=== PATIENT | female | born 1985 | race Caucasian/White ===

== ENCOUNTER 2017-03-02 11:33 | Emergency (ER) | payer OTHER ==
[2017-03-02 11:58] VITALS: TEMP 97.7
--- NOTE | 2017-03-02 13:35 | ED ---
Head Injury HPI - General Chief complaint: Head Injury Stated complaint: facial bruising Time Seen by Provider: 03/02/17 12:46 Source: family, RN notes reviewed Mode of arrival: ambulatory Limitations: language barrier - History of Present Illness Initial comments: This a 31-year-old female with caregiver presents emergency Department chief complaint facial bruising. Patient is nonverbal mentally challenged patient that showed up to day program today with bruises all over her face. Patient commonly hits her face causes bruising but the symptoms worsen usual. Patient' s had no abnormal behavior from her baseline. No vomiting episodes. Patient's had no unilateral weakness. Patient did not have any witnessed trauma - Related Data Home Medications Medication Instructions Recorded Confirmed Multivitamin with Iron [Daily 1 tab PO DAILY 12/11/14 03/02/17 Multivitamin with Iron] Omeprazole [PriLOSEC] 20 mg PO AC-BRKFST 12/23/14 03/02/17 Diazepam [Valium] 2.5 mg PO HS 03/02/17 03/02/17 Lactulose 10 gm PO HS 03/02/17 03/02/17 Melatonin Unknown Dose 1 tab PO HS 03/02/17 03/02/17 Allergies/Adverse reactions: Allergies Allergy/AdvReac Type Severity Reaction Status Date / Time No Known Allergies Allergy Verified 03/02/17 13:55 Review of Systems ROS Statement: Those systems with pertinent positive or pertinent negative responses have been documented in the HPI. ROS Other: All systems not noted in ROS Statement are negative. Past Medical History Past Medical History: GERD/Reflux, Memory Impairment, Musculoskeletal Disorder, Neurologic Disorder Additional Past Medical History / Comment(s): RETT SYNDROME. APRAXIA. NON VERBAL. SEVERE SCOLIOSIS. UNABLE TO PERFORM ADL'S History of Any Multi-Drug Resistant Organisms: None Reported Past Surgical History: Bowel Resection, Hysterectomy, Orthopedic Surgery Additional Past Surgical History / Comment(s): SCHEDULED FOR COLONOSCOPY . BILAT FOOT SX. CLEFT PALLET REPAIR. PARTIAL GASTRECTOMY-12/26/12. REPAIR PERFORATED ULCER-12/26/12. COLONOSCOPY Past Anesthesia/Blood Transfusion Reactions: No Reported Reaction Smoking Status: Never smoker Past Alcohol Use History: None Reported Past Drug Use History: None Reported - Past Family History Sister(s) Family Medical History: Neurologic Disorder Additional Family Medical History / Comment(s): RETT SYNDROME General Exam Limitations: language barrier General appearance: alert, in no apparent distress Head exam: Present: atraumatic, normocephalic, normal inspection Eye exam: Present: PERRL, EOMI, periorbital swelling, other (Ecchymosis noted bilateral periorbital region). Absent: normal appearance, scleral icterus, conjunctival injection, periorbital tenderness ENT exam: Present: normal exam, normal oropharynx, mucous membranes moist Neck exam: Present: normal inspection, full ROM. Absent: tenderness, meningismus, lymphadenopathy Respiratory exam: Present: normal lung sounds bilaterally. Absent: respiratory distress, wheezes, rales, rhonchi, stridor Cardiovascular Exam: Present: regular rate, normal rhythm, normal heart sounds. Absent: systolic murmur, diastolic murmur, rubs, gallop, clicks Neurological exam: Present: alert, CN II-XII intact. Absent: oriented X3 Skin exam: Present: warm, dry, intact, normal color. Absent: rash Course Vital Signs 03/02/17 11:52 Temperature 97.7 F Pulse Rate 104 H Respiratory 18 Rate Blood Pressure 98/68 O2 Sat by Pulse 96 Oximetry Medical Decision Making - Medical Decision Making 31-year-old female presented for bruising of her face. There is no acute intracranial bleed or mass effect she does have soft tissue swelling of the face. Patient we discharge return parameters were discussed. Disposition Clinical Impression: Facial contusion, Head injury Disposition: HOME SELF-CARE Condition: Stable Instructions: Head Injury (ED) Additional Instructions: Please return to the Emergency Department if symptoms worsen or any other concerns. Referrals: Uday Connolly MD [Primary Care Provider] - 1-2 days Time of Disposition: 14:05
--- NOTE | 2017-03-02 13:57 | CT ---
EXAMINATION TYPE: CT brain wo con DATE OF EXAM: 03/02/2017 COMPARISON: NONE HISTORY: Patient special needs and will hit her head against wall. Patient has bilateral periorbital swelling and contusions. CT DLP: 904.3 mGycm Automated exposure control for dose reduction was used. FINDINGS: Central structures are midline. There is no evidence of hydrocephalus. No acute focal lesion, mass ef fect or midline shift is seen. I do not see evidence of intracranial blood. There is mucoperiosteal thickening involving the sphenoid and ethmoid air cells. No depressed skull f racture is seen. There is diffuse soft tissue swelling about the forehead and right temporal region. Orbital margins are intact. IMPRESSION: 1. NO ACUTE INTRACRANIAL ABNORMALITY. 2. SOFT TISSUE SWELLING DESCRIBED. 3. SPHENOIDAL AND ETHMOIDAL SINUS MUCOSAL DISEASE.
--- NOTE | 2017-03-02 13:59 | CT ---
EXAMINATION TYPE: CT facial bones wo con DATE OF EXAM: 03/02/2017 COMPARISON: NONE HISTORY: Patient special needs and will hit her head against wall. Patient has bilateral periorbital swelling and contusions. CT DLP: 593.6 mGycm Automated exposure control for dose reduction was used. TECHNIQUE: CT scan of the sinuses is performed without contrast, axial images are obtained, coronal r eformatted images are also reviewed. FINDINGS: Once again, soft tissue swelling over the forehead and right temporal region is identified. There is a 1 cm retention cyst or polyp involving the left sphenoid sinus. There is also thickening i nvolving the right sphenoid sinus as well as one of the posterior right ethmoidal air cells. The orbi ts themselves are unremarkable. The zygomatic arches are intact. The pterygoid plates are intact. The sanchez of the orbits and maxilla ry sinuses are intact. The mandible is unremarkable. IMPRESSION: 1. NO ACUTE OSSEOUS LESION. 2. SOFT TISSUE SWELLING DESCRIBED.
[2017-03-02 14:26] VITALS: BP 93/64; PULSE 93; RESP 20
== END 2017-03-02 14:26 | disposition home or self-care (01) ==
LOC: EC 11:33 → EEVIPCON 11:33 → EC 14:26
DX: S00.83XA Contusion of other part of head, initial encounter (principal); K21.9 Gastro-esophageal reflux disease without esophagitis; Z79.899 Other long term (current) drug therapy; W22.8XXA Striking against or struck by other objects, initial encounter
CPT/HCPCS: 70450; 70486; 99283

== ENCOUNTER 2017-04-25 14:08 | Inpatient (IN) | payer OTHER ==
[2017-04-25] MEDS ORDERED: RX INFO: IV CONTRAST WAS GIVEN 1 EACH MISC MISCELLANE PRN (14:42)
[2017-04-25] MEDS ORDERED: SODIUM CHLORIDE 0.9% 1,000 ML IV STA (14:42)
[2017-04-25] MEDS ORDERED: SODIUM CHLORIDE 0.9% 500 ML IV STA (14:42)
[2017-04-25] MEDS ORDERED: ONDANSETRON 4 MG/2 ML VIAL IVP STA (14:42)
[2017-04-25] MEDS: HYDROmorphone 1 MG/ML 1 ML SYRINGE IVP STA ×2 (14:44→16:02)
--- NOTE | 2017-04-25 14:47 | ED ---
Abdominal Pain HPI - General Chief Complaint: Abdominal Pain Stated Complaint: abdominal pain Time Seen by Provider: 04/25/17 14:35 Source: EMS, Caregiver Mode of arrival: EMS Limitations: language barrier, altered mental status - History of Present Illness Initial Comments: This 31-year-old white female presents with caregiver with abdominal pain. She is able to point to her mid to left lower abdomen indicating that this is where the pain is located. The onset occurred this morning. They caregiver relates that she was fine last evening. There's been no fevers, vomiting, or diarrhea. 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 She apparently has had multiple abdominal surgeries in the past. No other identifiable complaints or modifying factors. - Related Data Home Medications Medication Instructions Recorded Confirmed Multivitamin with Iron [Daily 1 tab PO DAILY 12/11/14 04/25/17 Multivitamin with Iron] Omeprazole [PriLOSEC] 20 mg PO AC-BRKFST 12/23/14 04/25/17 Melatonin 3 mg PO HS 04/25/17 04/25/17 Allergies Allergy/AdvReac Type Severity Reaction Status Date / Time No Known Allergies Allergy Verified 04/25/17 14:31 Review of Systems ROS Statement: Those systems with pertinent positive or pertinent negative responses have been documented in the HPI. ROS Other: All systems not noted in ROS Statement are negative. Past Medical History Past Medical History: GERD/Reflux, Memory Impairment, Musculoskeletal Disorder, Neurologic Disorder Additional Past Medical History / Comment(s): RETT SYNDROME. APRAXIA. NON VERBAL. SEVERE SCOLIOSIS. UNABLE TO PERFORM ADL'S History of Any Multi-Drug Resistant Organisms: None Reported Past Surgical History: Bowel Resection, Hysterectomy, Orthopedic Surgery Additional Past Surgical History / Comment(s): SCHEDULED FOR COLONOSCOPY . BILAT FOOT SX. CLEFT PALLET REPAIR. PARTIAL GASTRECTOMY-12/26/12. REPAIR PERFORATED ULCER-12/26/12. COLONOSCOPY Past Anesthesia/Blood Transfusion Reactions: No Reported Reaction Smoking Status: Never smoker Past Alcohol Use History: None Reported Past Drug Use History: None Reported - Past Family History Sister(s) Family Medical History: Neurologic Disorder Additional Family Medical History / Comment(s): RETT SYNDROME General Exam - General Exam Comments Initial Comments: GENERAL: The patient is well nourished and well hydrated. VITAL SIGNS: Heart rate, blood pressure, respiratory rate reviewed as recorded in nurse's notes. EYES: Pupils are round and reactive. Extraocular movements are intact. No conjunctival / lid redness or swelling. ENT: No external evidence of injury, swelling, or ecchymosis. Airway is patent. Throat is clear. NECK: Nontender. No swelling or evidence of injury. No subcutaneous emphysema. Trachea is midline. No thyroid mass. HEART: Regular rate and rhythm. Good peripheral pulses. LUNGS/CHEST: Breath sounds clear and equal bilaterally. No rales, rhonchi, or wheezes. No ecchymosis, subcutaneous emphysema, or tenderness. ABDOMEN: There is significant abdominal distention. Is mild left lower abdominal tenderness. No palpable masses or organomegaly. No peritoneal signs. No abdominal wall swelling or ecchymosis. EXTREMITIES: No extremity tenderness. Normal muscle tone and function. No thoracolumbar tenderness. NEUROLOGIC: Patient is able to move all extremities without difficulty. SKIN: No abrasions or ecchymosis is noted. No induration or masses noted. PSYCHIATRIC: Alert and in mild distress. He shouldn't is nonverbal. Limitations: language barrier, altered mental status Course Vital Signs 04/25/17 04/25/17 14:10 16:04 Temperature 98.8 F Pulse Rate 118 H 105 H Respiratory 18 18 Rate Blood Pressure 119/85 108/69 O2 Sat by Pulse 100 96 Oximetry Medical Decision Making - Medical Decision Making The patient was seen and examined. All diagnostics were reviewed. An IV is established and she receives Dilaudid 0.5 mg IV as well as Zofran 4 mg IV. She receives fluid hydration as well. She feels improved with the medications. The patient also had a computed tomography scan of the abdomen and pelvis which shows an overall nonspecific bowel gas pattern. The patient however does have findings consistent with possible mid to distal small bowel obstruction in surgical consultation is advised per radiologist. There is severe bowel dilation noted with multiple air-fluid levels. There are multiple lab abnormalities as well. An NG tube to low intermittent suction is ordered. Case will be discussed with internal medicine and general surgery and patient will be admitted to the hospital for further treatment. - Lab Data Result diagrams: 04/25/17 14:38 04/25/17 14:38 Lab Results 04/25/17 04/25/17 04/25/17 Range/Units 14:38 14:38 14:38 WBC 14.0 H (3.8-10.6) k/uL RBC 5.39 (3.80-5.40) m/uL Hgb 15.3 (11.4-16.0) gm/dL Hct 50.0 H (34.0-46.0) % MCV 92.7 (80.0-100.0) fL MCH 28.4 (25.0-35.0) pg MCHC 30.6 L (31.0-37.0) g/dL RDW 15.0 (11.5-15.5) % Plt Count 358 (150-450) k/uL Neutrophils % 85 % Lymphocytes % 10 % Monocytes % 4 % Eosinophils % 1 % Basophils % 0 % Neutrophils # 11.8 H (1.3-7.7) k/uL Lymphocytes # 1.4 (1.0-4.8) k/uL Monocytes # 0.5 (0-1.0) k/uL Eosinophils # 0.1 (0-0.7) k/uL Basophils # 0.0 (0-0.2) k/uL PT (9.0-12.0) sec INR (<1.2) APTT (22.0-30.0) sec Sodium 145 (137-145) mmol/L Potassium 4.7 (3.5-5.1) mmol/L Chloride 109 H (98-107) mmol/L Carbon Dioxide 19 L (22-30) mmol/L Anion Gap 17 mmol/L BUN 22 H (7-17) mg/dL Creatinine 0.75 (0.52-1.04) mg/dL Est GFR (MDRD) Af Amer >60 (>60 ml/min/1.73 sqM) Est GFR (MDRD) Non-Af >60 (>60 ml/min/1.73 sqM) Glucose 109 H (74-99) mg/dL Plasma Lactic Acid Homero 1.2 (0.7-2.0) mmol/L Calcium 10.8 H (8.4-10.2) mg/dL Total Bilirubin 0.8 (0.2-1.3) mg/dL AST 62 H (14-36) U/L ALT 71 H (9-52) U/L Alkaline Phosphatase 150 H (38-126) U/L Total Protein 9.3 H (6.3-8.2) g/dL Albumin 5.6 H (3.5-5.0) g/dL Amylase 95 (30-110) U/L Lipase 378 H (23-300) U/L Urine Color Urine Appearance (Clear) Urine pH (5.0-8.0) Ur Specific [place] (1.001-1.035) Urine Protein (Negative) Urine Glucose (UA) (Negative) Urine Ketones (Negative) Urine Blood (Negative) Urine Nitrite (Negative) Urine Bilirubin (Negative) Urine Urobilinogen (<2.0) mg/dL Ur Leukocyte Esterase (Negative) Urine RBC (0-5) /hpf Urine WBC (0-5) /hpf Ur Squamous Epith Cells (0-4) /hpf Urine Bacteria (None) /hpf Urine Mucus (None) /hpf 04/25/17 04/25/17 Range/Units 14:38 15:42 WBC (3.8-10.6) k/uL RBC (3.80-5.40) m/uL Hgb (11.4-16.0) gm/dL Hct (34.0-46.0) % MCV (80.0-100.0) fL MCH (25.0-35.0) pg MCHC (31.0-37.0) g/dL RDW (11.5-15.5) % Plt Count (150-450) k/uL Neutrophils % % Lymphocytes % % Monocytes % % Eosinophils % % Basophils % % Neutrophils # (1.3-7.7) k/uL Lymphocytes # (1.0-4.8) k/uL Monocytes # (0-1.0) k/uL Eosinophils # (0-0.7) k/uL Basophils # (0-0.2) k/uL PT 11.1 (9.0-12.0) sec INR 1.1 (<1.2) APTT 23.4 (22.0-30.0) sec Sodium (137-145) mmol/L Potassium (3.5-5.1) mmol/L Chloride (98-107) mmol/L Carbon Dioxide (22-30) mmol/L Anion Gap mmol/L BUN (7-17) mg/dL Creatinine (0.52-1.04) mg/dL Est GFR (MDRD) Af Amer (>60 ml/min/1.73 sqM) Est GFR (MDRD) Non-Af (>60 ml/min/1.73 sqM) Glucose (74-99) mg/dL Plasma Lactic Acid Homero (0.7-2.0) mmol/L Calcium (8.4-10.2) mg/dL Total Bilirubin (0.2-1.3) mg/dL AST (14-36) U/L ALT (9-52) U/L Alkaline Phosphatase (38-126) U/L Total Protein (6.3-8.2) g/dL Albumin (3.5-5.0) g/dL Amylase (30-110) U/L Lipase (23-300) U/L Urine Color Yellow Urine Appearance Clear (Clear) Urine pH 5.5 (5.0-8.0) Ur Specific [place] >1.050 H (1.001-1.035) Urine Protein 1+ H (Negative) Urine Glucose (UA) Negative (Negative) Urine Ketones Negative (Negative) Urine Blood Negative (Negative) Urine Nitrite Negative (Negative) Urine Bilirubin Negative (Negative) Urine Urobilinogen <2.0 (<2.0) mg/dL Ur Leukocyte Esterase Negative (Negative) Urine RBC 1 (0-5) /hpf Urine WBC 1 (0-5) /hpf Ur Squamous Epith Cells 1 (0-4) /hpf Urine Bacteria Rare H (None) /hpf Urine Mucus Moderate H (None) /hpf Disposition Clinical Impression: Abdominal pain, Abdominal distention, Small bowel obstruction, Leukocytosis, Rett syndrome Disposition: ADMITTED IP TO THIS [facility] Condition: Fair Instructions: Abdominal Pain (ED), Bowel Obstruction (ED) Time of Disposition: 16:26 Decision Date: 04/25/17 Decision Time: 16:26
[2017-04-25 14:56] LABS: Basophils % (A) 0 %; CH 29.9; CHCM 32.4; Eosinophils # (A) 0.1 k/uL (0-0.7); Eosinophils % (A) 1 %; HGB 15.3 gm/dL (11.4-16.0); Luc # (Auto) 0.15; Luc % (Auto) 1; Lymphocytes # (A) 1.4 k/uL (1.0-4.8); Lymphocytes % (A) 10 %; MCH 28.4 pg (25.0-35.0); MCHC 30.6 g/dL (31.0-37.0); MCV 92.7 fL (80.0-100.0); Mean Platelet Volume 8.3; Monocytes # (A) 0.5 k/uL (0-1.0); Monocytes % (A) 4 %; Neutrophils # (A) 11.8 k/uL (1.3-7.7); Neutrophils % (A) 85 %; RBC 5.39 m/uL (3.80-5.40); WBC (Perox) 13.85
[2017-04-25 15:07] LABS: ALT 71 U/L (9-52); AST 62 U/L (14-36); Alkaline Phosphatase 150 U/L (38-126); Amylase 95 U/L (30-110); Anion Gap 17 mmol/L; Blood Urea Nitrogen 22 mg/dL (7-17); Calcium 10.8 mg/dL (8.4-10.2); Carbon Dioxide 19 mmol/L (22-30); Chloride 109 mmol/L (98-107); Glucose 109 mg/dL (74-99); Non-African American GFR(MDRD) >60 (>60 ml/min/1.73 sqM); Potassium 4.7 mmol/L (3.5-5.1); Sodium 145 mmol/L (137-145); Total Bilirubin 0.8 mg/dL (0.2-1.3); Total Protein 9.3 g/dL (6.3-8.2)
[2017-04-25 15:12] LABS: INR 1.1 (<1.2); Partial Thromboplastin Time 23.4 sec (22.0-30.0); Prothrombin Time 11.1 sec (9.0-12.0)
[2017-04-25 15:48] LABS: Appearance,Urine Clear (Clear); Bacteria,Urine Rare /hpf; Bilirubin,Urine Negative (Negative); Glucose,Urine (UA) Negative (Negative); Ketones,Urine Negative (Negative); Leukocyte Esterase,Urine Negative (Negative); Mucus,Urine Moderate /hpf; Nitrite,Urine Negative (Negative); PH, Urine 5.5 (5.0-8.0); Particle Count 4502; Protein,Urine 1+ (Negative); RBC,Urine 1 /hpf (0-5); Squamous Epithelial Cell,Urine 1 /hpf (0-4); UA Billing (MACRO vs. MICRO) MICRO; Urobilinogen,Urine <2.0 mg/dL (<2.0); WBC,Urine 1 /hpf (0-5)
--- NOTE | 2017-04-25 15:52 | CT ---
EXAMINATION TYPE: CT abdomen pelvis w con DATE OF EXAM: 04/25/2017 HISTORY: Abdominal pain and distention. CT DLP: 526.1mGycm Automated Exposure Control for Dose Reduction was Utilized. CONTRAST: CT scan of the abdomen and pelvis is performed without oral but with IV Contrast, patient injected wi th 100 mL of Omnipaque 300. COMPARISON: CT abdomen and pelvis June 15, 2013. FINDINGS: Patient has no intra-abdominal fat making evaluation suboptimal. LUNG BASES: No significant abnormality is appreciated. LIVER/GB: No significant abnormality is appreciated. PANCREAS: No significant abnormality is seen. SPLEEN: No significant abnormality is seen. ADRENALS: No significant abnormality is seen. KIDNEYS: No significant abnormality is seen. BOWEL: Evaluation bowel is suboptimal since patient has virtually no intra-abdominal fat. Similar to prior study there are dilated bowel loops in the upper to mid abdomen with multiple air-fluid levels. There is suggestion of nondistended bowel in the pelvis particularly posteriorly. There is suggestio n of nondilated colon in the right lateral abdomen. There is significant mass effect on abdominal and pelvic organs due to marked bowel dilatation. I suspect there is been prior surgery near gastroesoph ageal junction. Stomach is not well-visualized to assess. UTERUS/ADNEXA: Uterus is not well seen and may be surgically absent or atrophic in appearance. LYMPH NODES: No greater than 1cm abdominal or pelvic lymph nodes are appreciated. OSSEOUS STRUCTURES: Underlying rotary scoliosis is redemonstrated. OTHER: No significant additional abnormality is seen. IMPRESSION: Overall nonspecific bowel gas pattern. Patient may have baseline severe ileus. Cannot exc lude developing mid to distal small bowel obstruction. Surgical consultation advised.
[2017-04-25 16:01] LABS: Specific Gravity,Urine >1.050 (1.001-1.035)
[2017-04-25] MEDS ORDERED: PIPERACILLIN-TAZOBACTAM 3.375 GM in DEXTROSE/WATER 1 50ML.BAG IVPB STA (16:39)
[2017-04-25] MEDS ORDERED: NALOXONE 0.4 MG/ML 1 ML VIAL IV PRN (16:54)
[2017-04-25] MEDS ORDERED: IBUPROFEN 400 MG TAB PO PRN (16:54)
[2017-04-25] MEDS ORDERED: ONDANSETRON 4 MG/2 ML VIAL IVP PRN (16:54)
[2017-04-25] MEDS ORDERED: ACETAMINOPHEN TAB 325 MG TAB PO PRN (16:54)
[2017-04-25] MEDS ORDERED: LORazepam 2 MG/ML SYRINGE IV STA (17:05)
[2017-04-25] MEDS: LORazepam 2 MG/ML SYRINGE IV PRN ×2 (17:06→18:17)
--- NOTE | 2017-04-25 17:47 | XR ---
EXAMINATION TYPE: XR abdomen 1V DATE OF EXAM: 04/25/2017 5:37 PM CLINICAL HISTORY: Nasogastric tube placement. TECHNIQUE: Single supine KUB image of the abdomen is obtained. COMPARISON: None. FINDINGS: The nasogastric tube is placed beyond the gastroesophageal junction in the region of the ga stric body, however the distal tip does curve cephalad. There is no-shaped scoliotic curvature. Similar to the exam of 12/29/2014 there is diffuse gaseous dil ation of both large and small bowel with paucity of haustra. Retained contrast is seen within the sona al collecting systems. Surgical suture is seen within the right upper quadrant.. IMPRESSION: 1. Enteric tube located in the region of the gastric fundus with its distal tip curved and oriented c ephalad. 2. Extensive gaseous dilation of both large and small bowel, similar to the exam of 12/29/2014. Baseli ne severe ileus is suspected although developing bowel obstruction not excluded on the CT abdomen yariel ed 04/25/2017.
[2017-04-25] MEDS: HYDROmorphone 1 MG/ML 1 ML SYRINGE IV PRN ×3 (18:17→23:53)
[2017-04-25 18:33] VITALS: BMI 17.2
[2017-04-26] MEDS: PIPERACILLIN-TAZOBACTAM 3.375 GM in DEXTROSE/WATER 1 50ML.BAG IVPB SCH ×4 (00:07→23:54)
[2017-04-26] MEDS: HYDROmorphone 1 MG/ML 1 ML SYRINGE IV PRN ×5 (02:42→23:34)
[2017-04-26] MEDS: MELATONIN 3 MG TABLET PO SCH ×2 (04:15→22:53)
[2017-04-26] MEDS: LORazepam 2 MG/ML SYRINGE IV PRN ×2 (08:05→17:12)
[2017-04-26 08:28] LABS: CH 28.5; CHCM 31.2; HCT 46.7 % (34.0-46.0); HDW 2.24; HGB 14.9 gm/dL (11.4-16.0); Immature Gran Flag Marked; MCH 29.4 pg (25.0-35.0); MCV 91.9 fL (80.0-100.0); Mean Platelet Volume 7.7; RBC 5.09 m/uL (3.80-5.40); RDW 14.2 % (11.5-15.5); WBC 3.4 k/uL (3.8-10.6); WBC (Perox) 3.43
[2017-04-26 08:31] LABS: ALT 71 U/L (9-52); AST 46 U/L (14-36); Alkaline Phosphatase 124 U/L (38-126); Amylase 35 U/L (30-110); Anion Gap 16 mmol/L; Blood Urea Nitrogen 29 mg/dL (7-17); Calcium 9.6 mg/dL (8.4-10.2); Carbon Dioxide 18 mmol/L (22-30); Chloride 111 mmol/L (98-107); Glucose 170 mg/dL (74-99); Non-African American GFR(MDRD) >60 (>60 ml/min/1.73 sqM); Potassium 4.6 mmol/L (3.5-5.1); Sodium 145 mmol/L (137-145); Total Bilirubin 1.5 mg/dL (0.2-1.3); Total Protein 7.5 g/dL (6.3-8.2)
[2017-04-26] MEDS ORDERED: ENOXAPARIN 40 MG/0.4 ML SYRINGE SQ SCH (09:00)
--- NOTE | 2017-04-26 09:29 | XR ---
EXAMINATION TYPE: XR chest 1V portable DATE OF EXAM: 04/26/2017 COMPARISON: 12/30/2014 HISTORY: NG tube placement TECHNIQUE: Single frontal view of the chest is obtained. FINDINGS: Markedly dilated bowel loops are seen with elevation of the hemidiaphragms. Could not excl ude free air on this exam. NG tube appears to be coiled the level of the epigastrium. Scoliosis noted. Lungs are otherwise clear. IMPRESSION: 1. NG tube appears coiled at the level of the epigastrium 2. Markedly dilated bowel loops correlate for obstruction.
[2017-04-26 10:07] LABS: Add Differential Manual Differential
[2017-04-26] MEDS: PANTOPRAZOLE 40 MG/10 ML VIAL IV SCH (10:16)
[2017-04-26 10:17] LABS: Band Neutrophils % 28 %; Metamyelocytes % 1 %; Nucleated Red Blood Cells 0 /100 WBC (0-0); Total Cells Counted 200
[2017-04-26 10:18] LABS: Manual Review Performed
[2017-04-26] MEDS: MULTIVITAMINS, THERA 1 EACH TAB PO SCH (11:48)
--- NOTE | 2017-04-26 11:58 | P.GSCN ---
History of Present Illness Consult date: 04/26/17 Reason for Consult: Abdominal pain History of present illness: 31-year-old female being seen at the request of the attending for surgical eval with a chief complaint of abdominal pain. Patient presented to the emergency room via the EMS system after care providers noted the patient to be experiencing left lower quadrant pain. The onset occurred in the morning. Patient is nonverbal due to cognitive impairment does communicate by pointing. Patient has had multiple abdominal surgeries in the past Patient has had a repair of an incisional hernia with mesh patient in 2014 for an ileus did have a decompressive sigmoidoscopy in the emergency room patient did undergo a CAT scan of the abdomen and pelvis with contrast. In summary it did show suspect severe ileus cannot exclude a developing mid to distal small bowel obstruction. In the emergency room the abdomen was distended firm. Patient was admitted to the services of the attending with a surgical consultation requested. Nursing this morning report had tried on 3 attempts to insert a nasogastric tube. NG tube placement showed that the NG tube appeared to be coiled at the level of the epigastrium. Markedly dilated loops correlate for obstruction patient refused to have further attempts at placing an nasogastric tube care providers at the bedside Review of Systems Difficult to obtain patient can give no adequate recall Past Medical History Past Medical History: GERD/Reflux, Memory Impairment, Musculoskeletal Disorder, Neurologic Disorder Additional Past Medical History / Comment(s): RETT SYNDROME. APRAXIA. NON VERBAL. SEVERE SCOLIOSIS. UNABLE TO PERFORM ADL'S History of Any Multi-Drug Resistant Organisms: None Reported Past Surgical History: Bowel Resection, Hernia Repair, Hysterectomy, Orthopedic Surgery Additional Past Surgical History / Comment(s): CLEFT PALLET REPAIR. PARTIAL GASTRECTOMY-12/26/12. REPAIR PERFORATED ULCER-12/26/12. COLONOSCOPY Past Anesthesia/Blood Transfusion Reactions: No Reported Reaction Additional Psychological History / Comment(s): MENTALLY HANDICAPPED- UNDERSTANDING OF APPROX . A 4 YR OLD. NON VERBAL. DOES UNDERSTAND [place] Smoking Status: Never smoker Past Alcohol Use History: None Reported Past Drug Use History: None Reported - Past Family History Sister(s) Family Medical History: Neurologic Disorder Additional Family Medical History / Comment(s): RETT SYNDROME Medications and Allergies Home Medications Medication Instructions Recorded Confirmed Type Multivitamin with Iron [Daily 1 tab PO DAILY 12/11/14 04/25/17 History Multivitamin with Iron] Omeprazole [PriLOSEC] 20 mg PO AC-BRKFST 12/23/14 04/25/17 History Melatonin 3 mg PO HS 04/25/17 04/25/17 History Allergies Allergy/AdvReac Type Severity Reaction Status Date / Time No Known Allergies Allergy Verified 04/25/17 14:31 Surgical - Exam Vital Signs Temp Pulse Resp BP Pulse Ox 98.8 F 118 H 18 119/85 100 04/25/17 14:10 04/25/17 14:10 04/25/17 14:10 04/25/17 14:10 04/25/17 14:10 Physical exam 31-year-old female nonverbal appears well-nourished well-hydrated sitting up in bed Lungs diminished at the bases adequate air movement no wheezing rales or rhonchi no cough Heart S1-S2 audible regular no murmur noted Abdomen firm significant distended few hypoactive bowel tones no nausea. Mild left lower abdominal tenderness with palpitation. No abdominal wall tenderness. No palpable organomegaly. No peritoneal signs Extremities no pedal edema moves all extremities without difficulty Results - Labs 04/26/17 07:40 04/26/17 07:40 Abnormal Lab Results - Last 24 Hours (Table) 04/25/17 04/25/17 04/25/17 Range/Units 14:38 14:38 15:42 WBC 14.0 H (3.8-10.6) k/uL Hct 50.0 H (34.0-46.0) % MCHC 30.6 L (31.0-37.0) g/dL Neutrophils # 11.8 H (1.3-7.7) k/uL Lymphocytes # (Manual) (1.0-4.8) k/uL Metamyelocytes # (Man) (0) k/uL Chloride 109 H (98-107) mmol/L Carbon Dioxide 19 L (22-30) mmol/L BUN 22 H (7-17) mg/dL Glucose 109 H (74-99) mg/dL Calcium 10.8 H (8.4-10.2) mg/dL Total Bilirubin (0.2-1.3) mg/dL AST 62 H (14-36) U/L ALT 71 H (9-52) U/L Alkaline Phosphatase 150 H (38-126) U/L Total Protein 9.3 H (6.3-8.2) g/dL Albumin 5.6 H (3.5-5.0) g/dL Lipase 378 H (23-300) U/L Ur Specific [place] >1.050 H (1.001-1.035) Urine Protein 1+ H (Negative) Urine Bacteria Rare H (None) /hpf Urine Mucus Moderate H (None) /hpf 04/26/17 04/26/17 Range/Units 07:40 07:40 WBC 3.4 L (3.8-10.6) k/uL Hct 46.7 H (34.0-46.0) % MCHC (31.0-37.0) g/dL Neutrophils # (1.3-7.7) k/uL Lymphocytes # (Manual) 0.68 L (1.0-4.8) k/uL Metamyelocytes # (Man) 0.03 H (0) k/uL Chloride 111 H (98-107) mmol/L Carbon Dioxide 18 L (22-30) mmol/L BUN 29 H (7-17) mg/dL Glucose 170 H (74-99) mg/dL Calcium (8.4-10.2) mg/dL Total Bilirubin 1.5 H (0.2-1.3) mg/dL AST 46 H (14-36) U/L ALT 71 H (9-52) U/L Alkaline Phosphatase (38-126) U/L Total Protein (6.3-8.2) g/dL Albumin (3.5-5.0) g/dL Lipase (23-300) U/L Ur Specific [place] (1.001-1.035) Urine Protein (Negative) Urine Bacteria (None) /hpf Urine Mucus (None) /hpf Diabetes panel 04/25/17 04/26/17 Range/Units 14:38 07:40 Sodium 145 145 (137-145) mmol/L Potassium 4.7 4.6 (3.5-5.1) mmol/L Chloride 109 H 111 H (98-107) mmol/L Carbon Dioxide 19 L 18 L (22-30) mmol/L BUN 22 H 29 H (7-17) mg/dL Creatinine 0.75 0.90 (0.52-1.04) mg/dL Glucose 109 H 170 H (74-99) mg/dL Calcium 10.8 H 9.6 (8.4-10.2) mg/dL AST 62 H 46 H (14-36) U/L ALT 71 H 71 H (9-52) U/L Alkaline Phosphatase 150 H 124 (38-126) U/L Total Protein 9.3 H 7.5 (6.3-8.2) g/dL Albumin 5.6 H 4.7 (3.5-5.0) g/dL Calcium panel 04/25/17 04/26/17 Range/Units 14:38 07:40 Calcium 10.8 H 9.6 (8.4-10.2) mg/dL Albumin 5.6 H 4.7 (3.5-5.0) g/dL Pituitary panel 04/25/17 04/26/17 Range/Units 14:38 07:40 Sodium 145 145 (137-145) mmol/L Potassium 4.7 4.6 (3.5-5.1) mmol/L Chloride 109 H 111 H (98-107) mmol/L Carbon Dioxide 19 L 18 L (22-30) mmol/L BUN 22 H 29 H (7-17) mg/dL Creatinine 0.75 0.90 (0.52-1.04) mg/dL Glucose 109 H 170 H (74-99) mg/dL Calcium 10.8 H 9.6 (8.4-10.2) mg/dL Adrenal panel 04/25/17 04/26/17 Range/Units 14:38 07:40 Sodium 145 145 (137-145) mmol/L Potassium 4.7 4.6 (3.5-5.1) mmol/L Chloride 109 H 111 H (98-107) mmol/L Carbon Dioxide 19 L 18 L (22-30) mmol/L BUN 22 H 29 H (7-17) mg/dL Creatinine 0.75 0.90 (0.52-1.04) mg/dL Glucose 109 H 170 H (74-99) mg/dL Calcium 10.8 H 9.6 (8.4-10.2) mg/dL Total Bilirubin 0.8 1.5 H (0.2-1.3) mg/dL AST 62 H 46 H (14-36) U/L ALT 71 H 71 H (9-52) U/L Alkaline Phosphatase 150 H 124 (38-126) U/L Total Protein 9.3 H 7.5 (6.3-8.2) g/dL Albumin 5.6 H 4.7 (3.5-5.0) g/dL Assessment and Plan Plan: Impression Present on admission left lower quadrant pain with significant abdominal wall distention suspect due to developing mid to distal small bowel obstruction 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 Peace Esquivel nurse practitioner acting as scribe for signing physician.
[2017-04-26] MEDS: HEPARIN SODIUM,PORCINE 5,000 UNIT/ML 1 ML VIAL SQ SCH ×2 (15:57→23:54)
--- NOTE | 2017-04-26 17:32 | P.HPIM ---
History of Present Illness H&P Date: 04/26/17 Chief Complaint: Abdominal pain Domenica Barbosa is a 31-year-old female well known to my practice who presented to [facility] emergency room with a chief complaint of abdominal pain. Patient presented to the emergency room via the EMS system after care providers noted the patient to be experiencing left lower quadrant pain. The onset occurred in the morning. Patient is nonverbal due to cognitive impairment does communicate by pointing. Patient has had multiple abdominal surgeries in the past Patient has had a repair of an incisional hernia with mesh patient in 2014 for an ileus and had a decompressive sigmoidoscopy. in the emergency room patient did undergo a CAT scan of the abdomen and pelvis with contrast that revealed severe ileus cannot exclude a developing mid to distal small bowel obstruction. In the emergency room the abdomen was distended firm. Patient was admitted to the services of the attending with a surgical consultation requested. Nursing this morning report had tried on 3 attempts to insert a nasogastric tube. NG tube placement showed that the NG tube appeared to be coiled at the level of the epigastrium. Markedly dilated loops correlate for obstruction. patient refused to have further attempts at placing an nasogastric tube care providers at the bedside Past Medical History Past Medical History: GERD/Reflux, Memory Impairment, Musculoskeletal Disorder, Neurologic Disorder Additional Past Medical History / Comment(s): RETT SYNDROME. APRAXIA. NON VERBAL. SEVERE SCOLIOSIS. UNABLE TO PERFORM ADL'S History of Any Multi-Drug Resistant Organisms: None Reported Past Surgical History: Bowel Resection, Hernia Repair, Hysterectomy, Orthopedic Surgery Additional Past Surgical History / Comment(s): CLEFT PALLET REPAIR. PARTIAL GASTRECTOMY-12/26/12. REPAIR PERFORATED ULCER-12/26/12. COLONOSCOPY Past Anesthesia/Blood Transfusion Reactions: No Reported Reaction Additional Psychological History / Comment(s): MENTALLY HANDICAPPED- UNDERSTANDING OF APPROX . A 4 YR OLD. NON VERBAL. DOES UNDERSTAND [place] Smoking Status: Never smoker Past Alcohol Use History: None Reported Past Drug Use History: None Reported - Past Family History Sister(s) Family Medical History: Neurologic Disorder Additional Family Medical History / Comment(s): RETT SYNDROME Medications and Allergies Home Medications Medication Instructions Recorded Confirmed Type Multivitamin with Iron [Daily 1 tab PO DAILY 12/11/14 04/25/17 History Multivitamin with Iron] Omeprazole [PriLOSEC] 20 mg PO AC-BRKFST 12/23/14 04/25/17 History Melatonin 3 mg PO HS 04/25/17 04/25/17 History Allergies Allergy/AdvReac Type Severity Reaction Status Date / Time No Known Allergies Allergy Verified 04/25/17 14:31 Physical Exam Vitals: Vital Signs Temp Pulse Resp BP Pulse Ox 04/26/17 15:35 136 H 16 04/26/17 15:14 134 H 19 107/68 97 04/26/17 08:00 136 H 16 04/26/17 07:00 97.2 F L 136 H 16 112/78 95 04/25/17 22:25 98.3 F 120 H 16 106/71 93 L Intake and Output 04/26/17 04/26/17 04/26/17 06:59 14:59 22:59 Intake Total 850 500 Balance 850 500 Intake: Intake, IV Titration 850 500 Amount Piperacillin-Tazobactam 3 50 .375 gm In Dextrose/Water 1 50ml.bag @ 12.5 mls/hr IVPB ONCE STA Rx#: [id number] Piperacillin-Tazobactam 3 50 50 .375 gm In Dextrose/Water 1 50ml.bag @ 12.5 mls/hr IVPB Q8HR FIDENCIO Rx#: [id number] Sodium Chloride 0.9% 1, 800 400 000 ml @ 100 mls/hr IV . Q10H STA Rx#:[id number] Other: Voiding Method Toilet Toilet Toilet # Voids 1 2 Weight 45.359 kg 45.359 kg Patient Weight 04/27/17 06:59 Weight 45.359 kg In general patient is alert and oriented in no apparent distress HEENT head normocephalic and atraumatic Neck is supple no JVD no goiter no lymphadenopathy Chest exam is clear to auscultation no crackles no wheezing Cardiac exam reveals regular heart sounds S1 and S2 no gallops no murmurs Abdomen exam reveals generalized tenderness abdomen is firm no rebound or rigidity bowel sounds not heard no palpable masses no organomegaly Extremity exam reveals minimal edema, no cyanosis or clubbing Results CBC & Chem 7: 04/26/17 07:40 04/26/17 07:40 Labs: Abnormal Lab Results - Last 24 Hours (Table) 04/26/17 04/26/17 Range/Units 07:40 07:40 WBC 3.4 L (3.8-10.6) k/uL Hct 46.7 H (34.0-46.0) % Lymphocytes # (Manual) 0.68 L (1.0-4.8) k/uL Metamyelocytes # (Man) 0.03 H (0) k/uL Chloride 111 H (98-107) mmol/L Carbon Dioxide 18 L (22-30) mmol/L BUN 29 H (7-17) mg/dL Glucose 170 H (74-99) mg/dL Total Bilirubin 1.5 H (0.2-1.3) mg/dL AST 46 H (14-36) U/L ALT 71 H (9-52) U/L Thrombosis Risk Factor Assmnt - Choose All That Apply Any of the Below Risk Factors Present?: No Other Risk Factors: No Other congenital or acquired thrombophilia - If yes, enter type in comment: No Thrombosis Risk Factor Assessment Level: Very Low Risk Assessment and Plan Plan: #1 Abdominal pain with significant abdominal wall distention suspect due to developing mid to distal small bowel obstruction #2 History of caleb syndrome with Chronic debility, patient is nonverbal and has joint deformity with limited mobility #4 History of a repair of an abdominal hernia with mesh At this time patient is kept nothing by mouth surgical consultation following repeat labs and x-ray ordered awaiting further input from surgery
[2017-04-26] MEDS: SODIUM CHLORIDE 0.9% 1,000 ML IV SCH ×2 (19:50→21:15)
[2017-04-26] MEDS ORDERED: SODIUM CHLORIDE 0.9% 1,000 ML IV ONE (21:15)
[2017-04-27] MEDS: HYDROmorphone 1 MG/ML 1 ML SYRINGE IV PRN ×2 (02:17→08:23)
[2017-04-27] MEDS: LORazepam 2 MG/ML SYRINGE IV PRN (04:39)
[2017-04-27] MEDS: PIPERACILLIN-TAZOBACTAM 3.375 GM in DEXTROSE/WATER 1 50ML.BAG IVPB SCH ×3 (07:27→23:00)
[2017-04-27] MEDS: PANTOPRAZOLE 40 MG/10 ML VIAL IV SCH (07:30)
[2017-04-27] MEDS: HEPARIN SODIUM,PORCINE 5,000 UNIT/ML 1 ML VIAL SQ SCH ×3 (07:30→23:00)
--- NOTE | 2017-04-27 11:10 | CDI ---
In responding to this query, please exercise your independent professional judgment. The [facility] Coding Staff and Clinical Documentation Specialists appreciate your assistance in clarifying documentation, maintaining compliance with coding guidelines, accurately documenting patients condition and capturing severity of illness. The fact that a question is asked does not imply that any particular answer is desired or expected. Communication forms are a method of clarifying documentation and are not made part of the Legal Health Record. Thank you in advance for your clarification. Last Revision, June 2015 Nikko Humphrey [address] [facility] [place] [address] Documentation Clarification Form Date: 04/27/2017 10:57:00 AM From: Virginia Thornton RN, CCDS Admit Date: 04/25/2017 4:58:00 PM Patient Name: Domenica Barbosa Visit Number: [id number] Dr. Uday Connolly/Jeanna PRIDE Clarification of Clinical Findings HX and Clinical Indicators 04/26 H&P: "History of Rett syndrome with Chronic debility, patient is nonverbal and has joint deformity with limited mobility." 04/26/17 Surgical Consult: " Additional Past Medical History / Comment(s): RETT SYNDROME. APRAXIA. NON VERBAL. SEVERE SCOLIOSIS. UNABLE TO PERFORM ADL'S. Chronic debility moderate to severe limited mobility nonverbal suspect due to Rett syndrome." Based on the documentation provided, please provide a diagosis to refect patient 's severity of illness and risk of mortality. Functional Quadriplegia Neurologic Quadriplegia Other Specied Mobility Diagnosis Unable to Determine Please document in progress notes and D/C Summary. TIFFANIE
--- NOTE | 2017-04-27 11:29 | CDI ---
In responding to this query, please exercise your independent professional judgment. The [facility] Coding Staff and Clinical Documentation Specialists appreciate your assistance in clarifying documentation, maintaining compliance with coding guidelines, accurately documenting patients condition and capturing severity of illness. The fact that a question is asked does not imply that any particular answer is desired or expected. Communication forms are a method of clarifying documentation and are not made part of the Legal Health Record. Thank you in advance for your clarification. Last Revision, June [address] [place] [address] Documentation Clarification Form Date: 04/27/2017 11:11:00 AM From: Virginia Thornton RN, CCDS Admit Date: 04/25/2017 4:58:00 PM Patient Name: Domenica Barbosa Visit Number: [id number] Dr. Uday Connolly/Jeanna Goss PA Patient has been described as"Underweight" History/Risk Factors: Cognitive impairment, Carmelo Syndrome, Hx of multiple abdominal surgeries in the past Clinical Indicators: Patients weight is 45.4 kg Patients height is 64 in Calculated BMI is 17.2 Skin care/assessment: Koko Score of 17-18, Skin Warm dry, intact with erythema Diagnostic tests: labs Treatments: Daily weights: per unit protocol Nutritional Education: Completed 04/27 Dietary Consult: Completed 04/19- "Underweight, appears to have normal muscle mass per observation. Need of several nursing staff to lift/turn: documented as a 1 person assist Malnutrition treatment: Administration of vitamins/supplements (e.g. Ensure/Boost): not ordered Back Order Clerk, physical therapy notes: not ordered In order to capture the severity of condition associated with patient BMI of 17.2, a clinical diagnoses needs to be documented by the physician. Please clarify: Emaciated Cachexia Underweight Malnutrition, (further specify severity and type) Other Unable to determine Please document in your progress notes and discharge summary in order to capture severity of illness and risk of mortality. Include clinical findings that support your diagnosis. FYI: Press F11 to launch patient chart. Place X here if this finding has no clinical significance, is not applicable or if you are not able to provide any additional documentation. TIFFANIE
[2017-04-27] MEDS: MULTIVITAMINS, THERA 1 EACH TAB PO SCH (12:18)
--- NOTE | 2017-04-27 13:25 | P.PN ---
Progress Note - Text The patient's abdomen is still quite distended. There are few be pink bowel sounds. Due to her gross abdominal distention. We will perform decompressive colonoscopy today. We'll contact her caregiver.
--- NOTE | 2017-04-27 14:16 | P.PN ---
Subjective 31-year-old female being seen on rounds this morning nonverbal sitting up in bed. Abdomen remains quite distended unchanged from admission. There are a few hypoactive bowel tones bilateral lower quadrants. Facial grimaces with palpitation to the abdominal wall noted. No family at bedside. Patient has a significant past medical history of chronic debility moderate to severe with limited mobility nonverbal in a patient who has Rett's syndrome. Additionally patient has severe scoliosis. Patients being followed by surgical service at the request of the attending for left lower quadrant pain significant abdominal distention suspect due to a distal small bowel obstruction. Nursing reports that they had attempted 4 times the day before to insert a nasogastric tube was unsuccessful patient could not cooperate with the procedure Objective - Vital Signs Vital signs: Vital Signs Temp 98.0 F 04/27/17 07:00 Pulse 126 H 04/27/17 08:00 Resp 20 04/27/17 08:00 BP 109/78 04/27/17 07:00 Pulse Ox 95 04/27/17 07:00 Intake & Output 04/26/17 04/27/17 04/27/17 18:59 06:59 18:59 Intake Total 500 1250 Balance 500 1250 Weight 45.359 kg 45.359 kg Intake: IV 1000 .9 normal saline 1L bolus 1000 Intake, IV Titration 500 250 Amount Piperacillin-Tazobactam 3 50 .375 gm In Dextrose/Water 1 50ml.bag @ 12.5 mls/hr IVPB ONCE STA Rx#: [id number] Piperacillin-Tazobactam 3 50 50 .375 gm In Dextrose/Water 1 50ml.bag @ 12.5 mls/hr IVPB Q8HR FIDENCIO Rx#: [id number] Sodium Chloride 0.9% 1, 200 000 ml @ 100 mls/hr IV . Q10H FIDENCIO Rx#:[id number] Sodium Chloride 0.9% 1, 400 000 ml @ 100 mls/hr IV . Q10H STA Rx#:[id number] Oral 0 Other: Voiding Method Toilet Toilet Toilet # Voids 2 2 - Exam Physical exam 31-year-old female th sitting up in bed nonverbal abdomen significantly distended Lungs diminished at the bases otherwise adequate air movement bilaterally currently on room air Heart S1-S2 audible regular no murmur noted Abdomen firm distended hypoactive bowel tones no reports of nausea vomiting no stool incontinent urine remains nothing by mouth Extremities muscle wasting to the upper or lower extremities no edema - Labs CBC & Chem 7: 04/26/17 07:40 04/26/17 07:40 Assessment and Plan Plan: Impression Present on admission left lower quadrant pain with significant severe abdominal wall distention suspect due to developing mid to distal small bowel obstruction History of caleb syndrome Functional quadriplegic with Chronic debility moderate to severe limited mobility not able to participate in ADLs suspect due to caleb syndrome History of a repair of an abdominal hernia with mesh Severe scolious unable to perform acute ADLs Plan Scheduled today for a decompressive colonoscopy IV fluid for hydration Keep nothing by mouth DVT and GI prophylaxis Further surgical recommendations pending continue to follow clinical course IV antibiotics Zosyn as ordered The above impression and plan of care have been discussed and directed by signing physician. Peace Esquivel nurse practitioner acting as scribe for signing physician.
[2017-04-27] MEDS ORDERED: IV FLUID CONTINUATION 1,000 ML IV ONE (14:19)
[2017-04-27] MEDS ORDERED: PHENYLEPHRINE-0.9% NACL SYG 1 MG/10 ML SYRINGE ONE (14:23)
[2017-04-27] MEDS ORDERED: PROPOFOL 10 MG/ML 20 ML VIAL IV ONE (14:23)
[2017-04-27] MEDS ORDERED: MIDAZOLAM 2 MG/2 ML VIAL ONE (14:23)
--- NOTE | 2017-04-27 14:48 | P.OP ---
Date of Procedure: 04/27/17 Preoperative Diagnosis: Ileus Postoperative Diagnosis: Ileus Procedure(s) Performed: Decompressive colonoscopy Anesthesia: MAC Surgeon: Kyler Antunez Pathology: none sent Condition: stable Disposition: PACU Description of Procedure: Patient's placed on the endoscopy table lateral position. She received IV sedation. The colonoscope was then placed patient anus and advanced to the proximal rectum. There was a large amount of stool in this area. At this point the air was aspirated from the colon. Significant amount of air was aspirated. The scope could not be advanced due to the large amount of stool. This point the scope was withdrawn. The patient's abdomen appeared softer after the colonoscopy. Patient sent to her room in stable condition.
[2017-04-27] MEDS ORDERED: LACTATED RINGERS 1,000 ML IV ONE (15:00)
[2017-04-27] MEDS: SODIUM CHLORIDE 0.9% 1,000 ML IV SCH (16:14)
--- NOTE | 2017-04-27 17:19 | P.PN ---
Subjective Domenica Barbosa is a 31-year-old female well known to my practice who presented to [facility] emergency room with a chief complaint of abdominal pain. Patient presented to the emergency room via the EMS system after care providers noted the patient to be experiencing left lower quadrant pain. The onset occurred in the morning. Patient is nonverbal due to cognitive impairment does communicate by pointing. Patient has had multiple abdominal surgeries in the past Patient has had a repair of an incisional hernia with mesh patient in 2014 for an ileus and had a decompressive sigmoidoscopy. in the emergency room patient did undergo a CAT scan of the abdomen and pelvis with contrast that revealed severe ileus cannot exclude a developing mid to distal small bowel obstruction. In the emergency room the abdomen was distended firm. Patient was admitted to the services of the attending with a surgical consultation requested. Nursing this morning report had tried on 3 attempts to insert a nasogastric tube. NG tube placement showed that the NG tube appeared to be coiled at the level of the epigastrium. Markedly dilated loops correlate for obstruction. patient refused to have further attempts at placing an nasogastric tube care providers at the bedside On 04/27/2017 patient was alert nonverbal he was seen and examined case was discussed with Dr. Antunez over the phone She underwent Decompressive colonoscopy today Objective - Vital Signs Vital signs: Vital Signs Temp 98.4 F 04/27/17 15:17 Pulse 119 H 04/27/17 16:00 Resp 17 04/27/17 16:00 BP 106/76 04/27/17 15:17 Pulse Ox 96 04/27/17 15:17 Intake & Output 04/26/17 04/27/17 04/27/17 18:59 06:59 18:59 Intake Total 500 1250 950 Balance 500 1250 950 Weight 45.359 kg 45.359 kg Intake: IV 1000 200 .9 normal saline 1L bolus 1000 Intake, IV Titration 500 250 750 Amount Piperacillin-Tazobactam 3 50 .375 gm In Dextrose/Water 1 50ml.bag @ 12.5 mls/hr IVPB [facility] Rx#: [id number] Piperacillin-Tazobactam 3 50 50 750 .375 gm In Dextrose/Water 1 50ml.bag @ 12.5 mls/hr IVPB Q8HR [facility] Rx#: [id number] Sodium Chloride 0.9% 1, 200 000 ml @ 100 mls/hr IV . Q10H [facility] Rx#:[id number] Sodium Chloride 0.9% 1, 400 000 ml @ 100 mls/hr IV . Q10H [facility] Rx#:[id number] Oral 0 Other: Voiding Method Toilet Toilet Toilet # Voids 2 2 - Exam In general patient is alert and oriented in no apparent distress HEENT head normocephalic and atraumatic Neck is supple no JVD no goiter no lymphadenopathy Chest exam is clear to auscultation no crackles no wheezing Cardiac exam reveals regular heart sounds S1 and S2 no gallops no murmurs Abdomen exam reveals mild tenderness abdomen is less firm there is faint bowel sounds no palpable masses or organomegaly Extremity exam reveals minimal edema, no cyanosis or clubbing - Labs CBC & Chem 7: 04/26/17 07:40 04/26/17 07:40 Assessment and Plan Plan: #1 Abdominal pain with significant abdominal wall distention suspect due to developing mid to distal small bowel obstruction #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
[2017-04-27] MEDS: MELATONIN 3 MG TABLET PO SCH (21:48)
[2017-04-28] MEDS: SODIUM CHLORIDE 0.9% 1,000 ML IV SCH ×3 (02:04→22:10)
[2017-04-28] MEDS: LORazepam 2 MG/ML SYRINGE IV PRN (02:05)
[2017-04-28] MEDS: PIPERACILLIN-TAZOBACTAM 3.375 GM in DEXTROSE/WATER 1 50ML.BAG IVPB SCH ×3 (07:58→23:11)
[2017-04-28] MEDS: HEPARIN SODIUM,PORCINE 5,000 UNIT/ML 1 ML VIAL SQ SCH ×3 (07:59→23:12)
[2017-04-28] MEDS: PANTOPRAZOLE 40 MG/10 ML VIAL IV SCH (07:59)
[2017-04-28] MEDS: HYDROmorphone 1 MG/ML 1 ML SYRINGE IV PRN ×3 (11:47→19:58)
[2017-04-28] MEDS: MULTIVITAMINS, THERA 1 EACH TAB PO SCH (12:30)
--- NOTE | 2017-04-28 14:30 | P.PN ---
<Peace Esquivel - Last Filed: 04/28/17 14:21> Subjective 31-year-old female being seen on rounds. Currently sitting up in a chair with a sitter at the bedside patient currently is cooperative but does have periods of yelling out loud . The abdomen remains firm distended unchanged from admission been no nausea. No bowel movements. Patient did have a decompressive colonoscopy done on the . A significant amount of air was aspirated. Was a large amount of stool noted in the proximal rectum during the procedure. No family at bedside. Objective - Vital Signs Vital signs: Vital Signs Temp 98 F 04/28/17 07:00 Pulse 99 04/28/17 07:00 Resp 16 04/28/17 07:00 BP 109/76 04/28/17 07:00 Pulse Ox 96 04/28/17 07:00 Intake & Output 04/27/17 04/28/17 04/28/17 18:59 06:59 18:59 Intake Total 950 1900 Balance 950 1900 Weight 45.359 kg Intake: IV 200 1300 Piperacillin-Tazobactam 3 100 .375 gm In Dextrose/Water 1 50ml.bag @ 12.5 mls/hr IVPB Q8HR [facility] Rx#: [id number] Sodium Chloride 0.9% 1, 1200 000 ml @ 100 mls/hr IV . Q10H [facility] Rx#:[id number] Intake, IV Titration 750 Amount Piperacillin-Tazobactam 3 750 .375 gm In Dextrose/Water 1 50ml.bag @ 12.5 mls/hr IVPB Q8HR [facility] Rx#: [id number] Oral 600 Other: Voiding Method Toilet Toilet Toilet # Voids 1 # Bowel Movements 1 - Exam Physical exam 31-year-old female th sitting up in a chair nonverbal abdomen remains significantly distended Lungs diminished at the bases otherwise adequate air movement bilaterally currently on room air Heart S1-S2 audible regular no murmur noted Abdomen firm distended hypoactive bowel tones no reports of nausea vomiting no stool incontinent urine tolerating clear liquid Extremities muscle wasting to the upper or lower extremities no edema - Labs CBC & Chem 7: 04/26/17 07:40 04/26/17 07:40 Assessment and Plan Plan: Impression Present on admission left lower quadrant pain with significant severe abdominal wall distention suspect due to developing mid to distal small bowel obstruction History of caleb syndrome Functional quadriplegic with Chronic debility moderate to severe limited mobility not able to participate in ADLs suspect due to caleb syndrome History of a repair of an abdominal hernia with mesh Severe scoliosis unable to perform acute ADLs Status post decompressive colonoscopy done on April 27 Plan IV fluid for hydration DVT and GI prophylaxis Further surgical recommendations pending continue to follow clinical course IV antibiotics Zosyn as ordered The above impression and plan of care have been discussed and directed by signing physician. Peace Esquivel nurse practitioner acting as scribe for signing physician. <Kraig Unger - Last Filed: 04/28/17 18:02> Objective - Vital Signs Vital signs: Vital Signs Temp 97.9 F 04/28/17 15:00 Pulse 95 04/28/17 15:00 Resp 16 04/28/17 15:00 BP 119/85 04/28/17 15:00 Pulse Ox 99 04/28/17 15:00 Intake & Output 04/27/17 04/28/17 04/28/17 18:59 06:59 18:59 Intake Total 950 1900 Balance 950 1900 Weight 45.359 kg Intake: IV 200 1300 Piperacillin-Tazobactam 3 100 .375 gm In Dextrose/Water 1 50ml.bag @ 12.5 mls/hr IVPB Q8HR [facility] Rx#: [id number] Sodium Chloride 0.9% 1, 1200 000 ml @ 100 mls/hr IV . Q10H [facility] Rx#:[id number] Intake, IV Titration 750 Amount Piperacillin-Tazobactam 3 750 .375 gm In Dextrose/Water 1 50ml.bag @ 12.5 mls/hr IVPB Q8HR [facility] Rx#: [id number] Oral 600 Other: Voiding Method Toilet Toilet Toilet # Voids 1 # Bowel Movements 1 - Labs CBC & Chem 7: 04/26/17 07:40 04/26/17 07:40 Assessment and Plan Plan: Patient requesting food. Appears to be comfortable. Unfortunately her abdomen does appear to be significantly distended and tympanic still. I suspect she chronically has bowel dilatation but this is exacerbated at this time. We'll provide Dulcolax suppositories. Repeat abdominal x-rays tomorrow. Continue liquids only for now.
[2017-04-28] MEDS ORDERED: BISACODYL 10 MG SUPP RECTAL STA (17:21)
--- NOTE | 2017-04-28 17:26 | P.PN ---
Subjective Domenica Barbosa is a 31-year-old female well known to my practice who presented to [facility] emergency room with a chief complaint of abdominal pain. Patient presented to the emergency room via the EMS system after care providers noted the patient to be experiencing left lower quadrant pain. The onset occurred in the morning. Patient is nonverbal due to cognitive impairment does communicate by pointing. Patient has had multiple abdominal surgeries in the past Patient has had a repair of an incisional hernia with mesh patient in 2014 for an ileus and had a decompressive sigmoidoscopy. in the emergency room patient did undergo a CAT scan of the abdomen and pelvis with contrast that revealed severe ileus cannot exclude a developing mid to distal small bowel obstruction. In the emergency room the abdomen was distended firm. Patient was admitted to the services of the attending with a surgical consultation requested. Nursing this morning report had tried on 3 attempts to insert a nasogastric tube. NG tube placement showed that the NG tube appeared to be coiled at the level of the epigastrium. Markedly dilated loops correlate for obstruction. patient refused to have further attempts at placing an nasogastric tube care providers at the bedside On 04/27/2017 patient was alert nonverbal he was seen and examined case was discussed with Dr. Antunez over the phone She underwent Decompressive colonoscopy today Objective - Vital Signs Vital signs: Vital Signs Temp 97.9 F 04/28/17 15:00 Pulse 95 04/28/17 15:00 Resp 16 04/28/17 15:00 BP 119/85 04/28/17 15:00 Pulse Ox 99 04/28/17 15:00 Intake & Output 04/27/17 04/28/17 04/28/17 18:59 06:59 18:59 Intake Total 950 1900 Balance 950 1900 Weight 45.359 kg Intake: IV 200 1300 Piperacillin-Tazobactam 3 100 .375 gm In Dextrose/Water 1 50ml.bag @ 12.5 mls/hr IVPB Q8HR [facility] Rx#: [id number] Sodium Chloride 0.9% 1, 1200 000 ml @ 100 mls/hr IV . Q10H [facility] Rx#:[id number] Intake, IV Titration 750 Amount Piperacillin-Tazobactam 3 750 .375 gm In Dextrose/Water 1 50ml.bag @ 12.5 mls/hr IVPB Q8HR [facility] Rx#: [id number] Oral 600 Other: Voiding Method Toilet Toilet Toilet # Voids 1 # Bowel Movements 1 - Exam In general patient is alert and oriented in no apparent distress HEENT head normocephalic and atraumatic Neck is supple no JVD no goiter no lymphadenopathy Chest exam is clear to auscultation no crackles no wheezing Cardiac exam reveals regular heart sounds S1 and S2 no gallops no murmurs Abdomen exam reveals mild tenderness abdomen is less firm there is faint bowel sounds no palpable masses or organomegaly Extremity exam reveals minimal edema, no cyanosis or clubbing - Labs CBC & Chem 7: 04/26/17 07:40 04/26/17 07:40 Assessment and Plan Plan: #1 Abdominal pain with significant abdominal wall distention suspect due to developing mid to distal small bowel obstruction, #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 No bowel movements today Dr. Unger ordered suppositories for tonight will monitor progress
[2017-04-28] MEDS: MELATONIN 3 MG TABLET PO SCH (22:10)
[2017-04-29] MEDS: HYDROmorphone 1 MG/ML 1 ML SYRINGE IV PRN ×2 (03:32→10:44)
--- NOTE | 2017-04-29 07:40 | XR ---
2 view abdomen HISTORY: Abdomen pain, ileus 2 views of the abdomen submitted on 3 images Comparison to prior exam 04/25/2017 Distended loops of bowel are again noted, there are air-fluid levels. There is a scoliosis present. N o evident pneumoperitoneum. Postop changes are noted. NG tube is not seen. Lung bases partially inclu ded on the exam. IMPRESSION: Correlate to exclude small bowel obstruction.
[2017-04-29] MEDS: SODIUM CHLORIDE 0.9% 1,000 ML IV SCH ×2 (07:44→16:53)
[2017-04-29] MEDS: HEPARIN SODIUM,PORCINE 5,000 UNIT/ML 1 ML VIAL SQ SCH ×3 (07:49→23:13)
[2017-04-29] MEDS: PANTOPRAZOLE 40 MG TABLET PO SCH (07:49)
[2017-04-29] MEDS: PIPERACILLIN-TAZOBACTAM 3.375 GM in DEXTROSE/WATER 1 50ML.BAG IVPB SCH ×3 (07:53→23:13)
[2017-04-29] MEDS: BISACODYL 10 MG SUPP RECTAL SCH ×2 (08:37→10:45)
[2017-04-29] MEDS: MULTIVITAMINS, THERA 1 EACH TAB PO SCH (12:13)
--- NOTE | 2017-04-29 13:25 | P.PN ---
<Renetta Esquivellila Butler - Last Filed: 04/29/17 14:40> Subjective Seen this morning sitting up in a chair patient was crying out loud yelling. No family at bedside Nursing reports patient continues to be uncooperative and will not take oral medication did take the rectal suppository. Nursing reports there is been no bowel movements abdomen remains firm and distended with tenderness unchanged from admission. Patient did have on April 27 decompressive colonoscopy done did show a large amount of stool in the proximal rectal during the procedure with a significant amount of air aspirated. abdominal x-ray done this morning continues to show distended loops of bowel with air-fluid levels Objective - Vital Signs Vital signs: Vital Signs Temp 97.0 F L 04/29/17 07:00 Pulse 81 04/29/17 07:00 Resp 16 04/29/17 07:00 BP 110/68 04/29/17 07:00 Pulse Ox 97 04/29/17 07:00 Intake & Output 04/28/17 04/29/17 04/29/17 18:59 06:59 18:59 Intake Total 1760 240 Balance 1760 240 Weight 45.359 kg Intake: IV 1300 Piperacillin-Tazobactam 3 100 .375 gm In Dextrose/Water 1 50ml.bag @ 12.5 mls/hr IVPB Q8HR [facility] Rx#: [id number] Sodium Chloride 0.9% 1, 1200 000 ml @ 100 mls/hr IV . Q10H [facility] Rx#:[id number] Oral 460 240 Other: Voiding Method Toilet Toilet # Voids 1 2 # Bowel Movements 1 - Exam Physical exam 31-year-old female sitting up in a chair yelling out loud Lungs essentially clear with adequate air movement bilaterally Heart S1-S2 audible and regular Abdomen firm distended diffuse tenderness no stool no reports of nausea no vomiting no stool Extremities no edema - Labs CBC & Chem 7: 04/26/17 07:40 04/26/17 07:40 Assessment and Plan Plan: Impression Present on admission left lower quadrant pain with significant severe abdominal wall distention suspect due to developing mid to distal small bowel obstruction History of caleb syndrome Functional quadriplegic with Chronic debility moderate to severe limited mobility not able to participate in ADLs suspect due to caleb syndrome History of a repair of an abdominal hernia with mesh Severe scoliosis unable to perform acute ADLs Status post decompressive colonoscopy done on April 27 Cognitive impairment suspect due to caleb syndrome Plan Duplex 10 mg rectal suppository daily IV fluid for hydration DVT and GI prophylaxis Further surgical recommendations pending continue to follow clinical course IV antibiotics Zosyn as ordered The above impression and plan of care have been discussed and directed by signing physician. Peace Esquivel nurse practitioner acting as scribe for signing physician. <Kraig Unger - Last Filed: 04/29/17 20:13> Subjective Patient without significant changes. She did have some flatus according to the nursing staff. No significant bowel movement however. She is hungry but she remains significantly distended. I spoke with the patient's father who is the legal guardian. He describes frequent episodes of bowel obstruction in the past. We discussed the options of reattempting a nasogastric tube. We also discussed the possible need for soft restraints because it she had previously pulled the nasogastric tube out. He is agreeable to those plans. Will keep nothing by mouth for now. Objective - Vital Signs Vital signs: Vital Signs Temp 97.8 F 04/29/17 15:00 Pulse 81 04/29/17 15:54 Resp 16 04/29/17 15:54 BP 112/76 04/29/17 15:00 Pulse Ox 95 04/29/17 15:00 Intake & Output 04/29/17 04/29/17 04/30/17 06:59 18:59 06:59 Intake Total 1760 1230 Balance 1760 1230 Weight 45.359 kg Intake: IV 1300 750 Piperacillin-Tazobactam 3 100 50 .375 gm In Dextrose/Water 1 50ml.bag @ 12.5 mls/hr IVPB Q8HR [facility] Rx#: [id number] Sodium Chloride 0.9% 1, 1200 700 000 ml @ 100 mls/hr IV . Q10H [facility] Rx#:[id number] Oral 460 480 Other: Voiding Method Toilet Toilet # Voids 2 # Bowel Movements 2 - Labs CBC & Chem 7: 04/26/17 07:40 04/26/17 07:40
--- NOTE | 2017-04-29 15:29 | P.PN ---
Subjective Domenica Barbosa is a 31-year-old female well known to my practice who presented to [facility] emergency room with a chief complaint of abdominal pain. Patient presented to the emergency room via the EMS system after care providers noted the patient to be experiencing left lower quadrant pain. The onset occurred in the morning. Patient is nonverbal due to cognitive impairment does communicate by pointing. Patient has had multiple abdominal surgeries in the past Patient has had a repair of an incisional hernia with mesh patient in 2014 for an ileus and had a decompressive sigmoidoscopy. in the emergency room patient did undergo a CAT scan of the abdomen and pelvis with contrast that revealed severe ileus cannot exclude a developing mid to distal small bowel obstruction. In the emergency room the abdomen was distended firm. Patient was admitted to the services of the attending with a surgical consultation requested. Nursing this morning report had tried on 3 attempts to insert a nasogastric tube. NG tube placement showed that the NG tube appeared to be coiled at the level of the epigastrium. Markedly dilated loops correlate for obstruction. patient refused to have further attempts at placing an nasogastric tube care providers at the bedside patient was alert nonverbal he was seen and examined case was discussed with Dr. Antunez over the phone She underwent Decompressive colonoscopy On 04/29/2017 patient is doing better she is alert nonverbal abdomen is less tense she had a bowel movement today Dr. Unger ordered a computed tomography scan of the abdomen awaiting results Objective - Vital Signs Vital signs: Vital Signs Temp 97.0 F L 04/29/17 07:00 Pulse 81 04/29/17 07:00 Resp 16 04/29/17 07:00 BP 110/68 04/29/17 07:00 Pulse Ox 97 04/29/17 07:00 Intake & Output 04/28/17 04/29/17 04/29/17 18:59 06:59 18:59 Intake Total 1760 1230 Balance 1760 1230 Weight 45.359 kg Intake: IV 1300 750 Piperacillin-Tazobactam 3 100 50 .375 gm In Dextrose/Water 1 50ml.bag @ 12.5 mls/hr IVPB Q8HR [facility] Rx#: [id number] Sodium Chloride 0.9% 1, 1200 700 000 ml @ 100 mls/hr IV . Q10H [facility] Rx#:[id number] Oral 460 480 Other: Voiding Method Toilet Toilet # Voids 1 2 # Bowel Movements 1 1 - Exam In general patient is alert and oriented in no apparent distress HEENT head normocephalic and atraumatic Neck is supple no JVD no goiter no lymphadenopathy Chest exam is clear to auscultation no crackles no wheezing Cardiac exam reveals regular heart sounds S1 and S2 no gallops no murmurs Abdomen exam reveals mild tenderness abdomen is less firm there is faint bowel sounds no palpable masses or organomegaly Extremity exam reveals minimal edema, no cyanosis or clubbing - Labs CBC & Chem 7: 04/26/17 07:40 04/26/17 07:40 Assessment and Plan Plan: #1 Abdominal pain with significant abdominal wall distention suspect due to developing mid to distal small bowel obstruction, #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 No bowel movements today Dr. Unger ordered computed tomography scan of the abdomen awaiting the results
[2017-04-29] MEDS: MELATONIN 3 MG TABLET PO SCH (20:37)
[2017-04-30] MEDS: LORazepam 2 MG/ML SYRINGE IV PRN ×3 (00:59→19:02)
[2017-04-30] MEDS: SODIUM CHLORIDE 0.9% 1,000 ML IV SCH ×2 (04:12→18:01)
[2017-04-30] MEDS: HYDROmorphone 1 MG/ML 1 ML SYRINGE IV PRN ×2 (07:21→13:59)
[2017-04-30] MEDS: PIPERACILLIN-TAZOBACTAM 3.375 GM in DEXTROSE/WATER 1 50ML.BAG IVPB SCH ×3 (07:23→23:06)
--- NOTE | 2017-04-30 08:03 | XR ---
EXAMINATION TYPE: XR abdomen 2V , 3 VIEWS DATE OF EXAM ORDERED: 04/30/2017 HISTORY: Eval for small bowel obstruction. COMPARISON: Previous study dated 04/29/2017. FINDINGS: NG tube is in place. Its tip is barely beyond the GE junction and should be advanced. There is a dramatic S-shaped scoliosis convex to the right at the thoracolumbar junction and to the l eft in the thoracic spine. The abdominal gas pattern demonstrates mildly dilated loops of small bowel. There are numerous air-fl uid levels. The degree of bowel distention has improved. No definite colonic air is seen. IMPRESSION: IMPROVING ABDOMINAL GAS PATTERN LIKELY REFLECTING RESOLVING SMALL BOWEL OBSTRUCTION.
[2017-04-30 08:23] LABS: Basophils % (A) 0 %; CH 29.4; CHCM 30.8; Eosinophils # (A) 0.1 k/uL (0-0.7); Eosinophils % (A) 2 %; HCT 37.5 % (34.0-46.0); HDW 2.37; Hypochromasia Slight; Luc % (Auto) 2; Lymphocytes # (A) 0.6 k/uL (1.0-4.8); Lymphocytes % (A) 11 %; MCH 29.5 pg (25.0-35.0); MCHC 30.7 g/dL (31.0-37.0); MCV 96.2 fL (80.0-100.0); Mean Platelet Volume 8.3; Monocytes # (A) 0.4 k/uL (0-1.0); Monocytes % (A) 7 %; Neutrophils # (A) 4.5 k/uL (1.3-7.7); Neutrophils % (A) 78 %; RDW 14.6 % (11.5-15.5); WBC 5.8 k/uL (3.8-10.6); WBC (Perox) 6.36
[2017-04-30 08:33] LABS: HGB 11.5 gm/dL (11.4-16.0)
[2017-04-30] MEDS: HEPARIN SODIUM,PORCINE 5,000 UNIT/ML 1 ML VIAL SQ SCH ×3 (08:51→23:06)
[2017-04-30] MEDS: PANTOPRAZOLE 40 MG TABLET PO SCH (08:51)
[2017-04-30 09:07] LABS: Anion Gap 10 mmol/L; Blood Urea Nitrogen 3 mg/dL (7-17); Carbon Dioxide 19 mmol/L (22-30); Chloride 115 mmol/L (98-107); Glucose 82 mg/dL (74-99); Non-African American GFR(MDRD) >60 (>60 ml/min/1.73 sqM); Potassium 3.1 mmol/L (3.5-5.1); Sodium 144 mmol/L (137-145)
--- NOTE | 2017-04-30 10:10 | P.PN ---
Subjective Principal diagnosis: Abdominal distention Patient allowed for a nasogastric tube placement yesterday evening. Today's x- rays are improved. No bowel movement today. Small bowel was there yesterday. Objective - Vital Signs Vital signs: Vital Signs Temp 98 F 04/30/17 07:00 Pulse 91 04/30/17 07:00 Resp 16 04/30/17 07:00 BP 117/84 04/30/17 07:00 Pulse Ox 96 04/30/17 07:00 Intake & Output 04/29/17 04/30/17 04/30/17 18:59 06:59 18:59 Intake Total 1230 300 Balance 1230 300 Weight 45.359 kg Intake: IV 750 300 Piperacillin-Tazobactam 3 50 .375 gm In Dextrose/Water 1 50ml.bag @ 12.5 mls/hr IVPB Q8HR [facility] Rx#: [id number] Sodium Chloride 0.9% 1, 700 300 000 ml @ 100 mls/hr IV . Q10H [facility] Rx#:[id number] Oral 480 Other: Voiding Method Toilet Toilet # Voids 1 # Bowel Movements 2 - Exam Abdomen: Distended, tympanic, slightly improved from yesterday, nontender - Labs CBC & Chem 7: 04/30/17 07:52 04/30/17 07:52 Labs: Abnormal Lab Results - Last 24 Hours (Table) 04/30/17 04/30/17 Range/Units 07:52 07:52 MCHC 30.7 L (31.0-37.0) g/dL Lymphocytes # 0.6 L (1.0-4.8) k/uL Potassium 3.1 L (3.5-5.1) mmol/L Chloride 115 H (98-107) mmol/L Carbon Dioxide 19 L (22-30) mmol/L BUN 3 L (7-17) mg/dL Calcium 8.0 L (8.4-10.2) mg/dL Assessment and Plan (1) Abdominal distention Narrative/Plan: Continue nasogastric tube suction. Serial abdominal x-rays. Status: Acute
[2017-04-30] MEDS: MULTIVITAMINS, THERA 1 EACH TAB PO SCH (12:47)
--- NOTE | 2017-04-30 14:37 | P.PN ---
Subjective Domenica Barbosa is a 31-year-old female well known to my practice who presented to [facility] emergency room with a chief complaint of abdominal pain. Patient presented to the emergency room via the EMS system after care providers noted the patient to be experiencing left lower quadrant pain. The onset occurred in the morning. Patient is nonverbal due to cognitive impairment does communicate by pointing. Patient has had multiple abdominal surgeries in the past Patient has had a repair of an incisional hernia with mesh patient in 2014 for an ileus and had a decompressive sigmoidoscopy. in the emergency room patient did undergo a CAT scan of the abdomen and pelvis with contrast that revealed severe ileus cannot exclude a developing mid to distal small bowel obstruction. In the emergency room the abdomen was distended firm. Patient was admitted to the services of the attending with a surgical consultation requested. Nursing this morning report had tried on 3 attempts to insert a nasogastric tube. NG tube placement showed that the NG tube appeared to be coiled at the level of the epigastrium. Markedly dilated loops correlate for obstruction. patient refused to have further attempts at placing an nasogastric tube care providers at the bedside patient was alert nonverbal he was seen and examined case was discussed with Dr. Antunez over the phone She underwent Decompressive colonoscopy On 04/29/2017 patient is doing better she is alert nonverbal abdomen is less tense she had a bowel movement today Dr. Unger ordered a computed tomography scan of the abdomen awaiting results On 04/30/2017 patient is alert sitting up in a chair she has NG tube in abdomen is less tense compared to yesterday Objective - Vital Signs Vital signs: Vital Signs Temp 98 F 04/30/17 07:00 Pulse 91 04/30/17 07:00 Resp 16 04/30/17 07:00 BP 117/84 04/30/17 07:00 Pulse Ox 96 04/30/17 07:00 Intake & Output 04/29/17 04/30/17 04/30/17 18:59 06:59 18:59 Intake Total 1230 300 Balance 1230 300 Weight 45.359 kg Intake: IV 750 300 Piperacillin-Tazobactam 3 50 .375 gm In Dextrose/Water 1 50ml.bag @ 12.5 mls/hr IVPB Q8HR [facility] Rx#: [id number] Sodium Chloride 0.9% 1, 700 300 000 ml @ 100 mls/hr IV . Q10H [facility] Rx#:[id number] Oral 480 Other: Voiding Method Toilet Toilet # Voids 1 # Bowel Movements 2 - Exam In general patient is alert and oriented in no apparent distress HEENT head normocephalic and atraumatic Neck is supple no JVD no goiter no lymphadenopathy Chest exam is clear to auscultation no crackles no wheezing Cardiac exam reveals regular heart sounds S1 and S2 no gallops no murmurs Abdomen exam reveals mild tenderness abdomen is less firm there is faint bowel sounds no palpable masses or organomegaly Extremity exam reveals minimal edema, no cyanosis or clubbing - Labs CBC & Chem 7: 04/30/17 07:52 04/30/17 07:52 Labs: Abnormal Lab Results - Last 24 Hours (Table) 04/30/17 04/30/17 Range/Units 07:52 07:52 MCHC 30.7 L (31.0-37.0) g/dL Lymphocytes # 0.6 L (1.0-4.8) k/uL Potassium 3.1 L (3.5-5.1) mmol/L Chloride 115 H (98-107) mmol/L Carbon Dioxide 19 L (22-30) mmol/L BUN 3 L (7-17) mg/dL Calcium 8.0 L (8.4-10.2) mg/dL Assessment and Plan Plan: #1 Abdominal pain with significant abdominal wall distention suspect due to developing mid to distal small bowel obstruction, #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 Patient allowed NG tube in today Patient underwent decompressive colonoscopy Will continue to monitor Patient still had normal bowel movements
[2017-04-30] MEDS: MELATONIN 3 MG TABLET PO SCH (19:57)
[2017-05-01] MEDS: HYDROmorphone 1 MG/ML 1 ML SYRINGE IV PRN ×2 (05:15→12:21)
[2017-05-01] MEDS: SODIUM CHLORIDE 0.9% 1,000 ML IV SCH ×2 (05:16→11:11)
[2017-05-01 08:25] LABS: ALT 45 U/L (9-52); AST 37 U/L (14-36); Alkaline Phosphatase 95 U/L (38-126); Anion Gap 16 mmol/L; Blood Urea Nitrogen 6 mg/dL (7-17); Calcium 8.5 mg/dL (8.4-10.2); Carbon Dioxide 15 mmol/L (22-30); Chloride 112 mmol/L (98-107); Non-African American GFR(MDRD) >60 (>60 ml/min/1.73 sqM); Potassium 3.3 mmol/L (3.5-5.1); Sodium 143 mmol/L (137-145); Total Bilirubin 0.9 mg/dL (0.2-1.3); Total Protein 5.7 g/dL (6.3-8.2)
[2017-05-01] MEDS: LORazepam 2 MG/ML SYRINGE IV PRN ×2 (08:34→16:51)
[2017-05-01 08:41] LABS: Glucose 48 mg/dL (74-99)
[2017-05-01 09:11] LABS: Glucose,Whole Blood 42 mg/dL (75-99)
[2017-05-01] MEDS ORDERED: DEXTROSE 10 % IN WATER 250 ML IV STA (09:16)
[2017-05-01] MEDS: PANTOPRAZOLE 40 MG TABLET PO SCH (09:29)
[2017-05-01 09:32] LABS: Glucose,Whole Blood 114 mg/dL (75-99)
[2017-05-01 09:39] LABS: Basophils % (A) 1 %; CH 28.7; CHCM 29.4; Eosinophils # (A) 0.1 k/uL (0-0.7); Eosinophils % (A) 1 %; HCT 43.2 % (34.0-46.0); HDW 2.31; HGB 13.1 gm/dL (11.4-16.0); Hypochromasia Marked; Luc # (Auto) 0.19; Luc % (Auto) 2; Lymphocytes # (A) 0.9 k/uL (1.0-4.8); Lymphocytes % (A) 10 %; MCH 29.9 pg (25.0-35.0); MCHC 30.4 g/dL (31.0-37.0); MCV 98.4 fL (80.0-100.0); Mean Platelet Volume 8.3; Monocytes # (A) 0.6 k/uL (0-1.0); Monocytes % (A) 7 %; Neutrophils # (A) 6.6 k/uL (1.3-7.7); Neutrophils % (A) 79 %; RBC 4.39 m/uL (3.80-5.40); RDW 13.9 % (11.5-15.5); WBC 8.4 k/uL (3.8-10.6); WBC (Perox) 9.18
[2017-05-01] MEDS: PIPERACILLIN-TAZOBACTAM 3.375 GM in DEXTROSE/WATER 1 50ML.BAG IVPB SCH ×3 (09:41→23:44)
[2017-05-01] MEDS: HEPARIN SODIUM,PORCINE 5,000 UNIT/ML 1 ML VIAL SQ SCH ×3 (09:42→23:45)
--- NOTE | 2017-05-01 10:11 | P.PN ---
Subjective Principal diagnosis: Abdominal distention Patient tolerating her nasogastric tube. Small amount of flatus. Appears comfortable. Objective - Vital Signs Vital signs: Vital Signs Temp 98 F 05/01/17 07:00 Pulse 92 05/01/17 07:00 Resp 16 05/01/17 07:00 BP 110/78 05/01/17 07:00 Pulse Ox 100 05/01/17 07:00 Intake & Output 04/30/17 05/01/17 05/01/17 18:59 06:59 18:59 Intake Total 300 Balance 300 Intake: IV 300 Sodium Chloride 0.9% 1, 300 000 ml @ 100 mls/hr IV . Q10H [facility] Rx#:[id number] Other: Voiding Method Toilet Toilet # Voids 2 2 # Bowel Movements 1 - Exam Abdomen: Soft, mild to moderate distention slightly improved, nontender - Labs CBC & Chem 7: 05/01/17 07:11 05/01/17 07:11 Labs: Abnormal Lab Results - Last 24 Hours (Table) 05/01/17 05/01/17 05/01/17 Range/Units 07:11 07:11 08:48 MCHC 30.4 L (31.0-37.0) g/dL Lymphocytes # 0.9 L (1.0-4.8) k/uL Potassium 3.3 L (3.5-5.1) mmol/L Chloride 112 H (98-107) mmol/L Carbon Dioxide 15 L (22-30) mmol/L BUN 6 L (7-17) mg/dL Glucose 48 L* (74-99) mg/dL POC Glucose (mg/dL) 42 L (75-99) mg/dL AST 37 H (14-36) U/L Total Protein 5.7 L (6.3-8.2) g/dL Albumin 3.2 L (3.5-5.0) g/dL 05/01/17 Range/Units 09:27 MCHC (31.0-37.0) g/dL Lymphocytes # (1.0-4.8) k/uL Potassium (3.5-5.1) mmol/L Chloride (98-107) mmol/L Carbon Dioxide (22-30) mmol/L BUN (7-17) mg/dL Glucose (74-99) mg/dL POC Glucose (mg/dL) 114 H (75-99) mg/dL AST (14-36) U/L Total Protein (6.3-8.2) g/dL Albumin (3.5-5.0) g/dL Assessment and Plan (1) Abdominal distention Narrative/Plan: Keep nasogastric tube to suction. Recheck abdominal x-rays tomorrow. Increase activity as able. Status: Acute
[2017-05-01] MEDS: BISACODYL 10 MG SUPP RECTAL SCH (11:09)
[2017-05-01 11:39] LABS: Glucose,Whole Blood 77 mg/dL (75-99)
[2017-05-01] MEDS: MULTIVITAMINS, THERA 1 EACH TAB PO SCH (13:06)
--- NOTE | 2017-05-01 14:38 | P.PN ---
Subjective Domenica Barbosa is a 31-year-old female well known to my practice who presented to [facility] emergency room with a chief complaint of abdominal pain. Patient presented to the emergency room via the EMS system after care providers noted the patient to be experiencing left lower quadrant pain. The onset occurred in the morning. Patient is nonverbal due to cognitive impairment does communicate by pointing. Patient has had multiple abdominal surgeries in the past Patient has had a repair of an incisional hernia with mesh patient in 2014 for an ileus and had a decompressive sigmoidoscopy. in the emergency room patient did undergo a CAT scan of the abdomen and pelvis with contrast that revealed severe ileus cannot exclude a developing mid to distal small bowel obstruction. In the emergency room the abdomen was distended firm. Patient was admitted to the services of the attending with a surgical consultation requested. Nursing this morning report had tried on 3 attempts to insert a nasogastric tube. NG tube placement showed that the NG tube appeared to be coiled at the level of the epigastrium. Markedly dilated loops correlate for obstruction. patient refused to have further attempts at placing an nasogastric tube care providers at the bedside patient was alert nonverbal he was seen and examined case was discussed with Dr. Antunez over the phone She underwent Decompressive colonoscopy On 04/29/2017 patient is doing better she is alert nonverbal abdomen is less tense she had a bowel movement today Dr. Unger ordered a computed tomography scan of the abdomen awaiting results On 04/30/2017 patient is alert sitting up in a chair she has NG tube in abdomen is less tense compared to yesterday On 05/01/2017 patient is alert sitting up in a chair NG tube is in Had episodes of hypoglycemia IV fluids switched to D5/0.45-100 mL an hour will monitor glucose level Potassium is low will correct Objective - Vital Signs Vital signs: Vital Signs Temp 98 F 05/01/17 07:00 Pulse 92 05/01/17 08:00 Resp 16 05/01/17 08:00 BP 110/78 05/01/17 07:00 Pulse Ox 100 05/01/17 07:00 Intake & Output 04/30/17 05/01/17 05/01/17 18:59 06:59 18:59 Intake Total 300 1100 Balance 300 1100 Intake: IV 300 Sodium Chloride 0.9% 1, 300 000 ml @ 100 mls/hr IV . Q10H [facility] Rx#:[id number] Intake, IV Titration 1100 Amount Dextrose 10 % in Water 250 250 ml @ 999 mls/hr IV ONCE [facility] Rx#:[id number] Piperacillin-Tazobactam 3 50 .375 gm In Dextrose/Water 1 50ml.bag @ 12.5 mls/hr IVPB Q8HR [facility] Rx#: [id number] Sodium Chloride 0.9% 1, 800 000 ml @ 100 mls/hr IV . Q10H [facility] Rx#:[id number] Other: Voiding Method Toilet Toilet Toilet # Voids 2 2 4 # Bowel Movements 1 - Exam In general patient is alert and oriented in no apparent distress HEENT head normocephalic and atraumatic Neck is supple no JVD no goiter no lymphadenopathy Chest exam is clear to auscultation no crackles no wheezing Cardiac exam reveals regular heart sounds S1 and S2 no gallops no murmurs Abdomen exam reveals mild tenderness abdomen is less firm there is faint bowel sounds no palpable masses or organomegaly Extremity exam reveals minimal edema, no cyanosis or clubbing - Labs CBC & Chem 7: 05/01/17 07:11 05/01/17 07:11 Labs: Abnormal Lab Results - Last 24 Hours (Table) 05/01/17 05/01/17 05/01/17 Range/Units 07:11 07:11 08:48 MCHC 30.4 L (31.0-37.0) g/dL Lymphocytes # 0.9 L (1.0-4.8) k/uL Potassium 3.3 L (3.5-5.1) mmol/L Chloride 112 H (98-107) mmol/L Carbon Dioxide 15 L (22-30) mmol/L BUN 6 L (7-17) mg/dL Glucose 48 L* (74-99) mg/dL POC Glucose (mg/dL) 42 L (75-99) mg/dL AST 37 H (14-36) U/L Total Protein 5.7 L (6.3-8.2) g/dL Albumin 3.2 L (3.5-5.0) g/dL 05/01/17 Range/Units 09:27 MCHC (31.0-37.0) g/dL Lymphocytes # (1.0-4.8) k/uL Potassium (3.5-5.1) mmol/L Chloride (98-107) mmol/L Carbon Dioxide (22-30) mmol/L BUN (7-17) mg/dL Glucose (74-99) mg/dL POC Glucose (mg/dL) 114 H (75-99) mg/dL AST (14-36) U/L Total Protein (6.3-8.2) g/dL Albumin (3.5-5.0) g/dL Assessment and Plan Plan: #1 Abdominal pain with significant abdominal wall distention suspect due to developing mid to distal small bowel obstruction, #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 Patient allowed NG tube in today Patient underwent decompressive colonoscopy Will continue to monitor Patient still had normal bowel movements
[2017-05-01] MEDS ORDERED: Potassium Replacement Protocol 1 EACH MISC MISCELLANE PRN ×2 (14:59→15:00)
[2017-05-01] MEDS: POTASSIUM CHLORIDE 10 MEQ, LIDOCAINE 2% INJ 10 MG in SODIUM CHLORIDE 0.9% 100 ML IV SCH ×2 (15:29→16:47)
[2017-05-01] MEDS: DEXTROSE 5%-0.45% NACL 1,000 ML IV SCH (16:47)
[2017-05-01 17:48] LABS: Glucose,Whole Blood 75 mg/dL (75-99)
[2017-05-01] MEDS: MELATONIN 3 MG TABLET PO SCH (19:59)
[2017-05-02 00:32] LABS: Glucose,Whole Blood 94 mg/dL (75-99)
[2017-05-02 06:21] LABS: Glucose,Whole Blood 89 mg/dL (75-99)
[2017-05-02] MEDS: DEXTROSE 5%-0.45% NACL 1,000 ML IV SCH ×2 (06:26→11:21)
[2017-05-02] MEDS: PANTOPRAZOLE 40 MG TABLET PO SCH (07:25)
[2017-05-02] MEDS: HEPARIN SODIUM,PORCINE 5,000 UNIT/ML 1 ML VIAL SQ SCH ×3 (07:26→23:17)
[2017-05-02] MEDS: LORazepam 2 MG/ML SYRINGE IV PRN ×2 (07:47→22:02)
[2017-05-02] MEDS: PIPERACILLIN-TAZOBACTAM 3.375 GM in DEXTROSE/WATER 1 50ML.BAG IVPB SCH ×2 (07:51→18:28)
--- NOTE | 2017-05-02 08:13 | XR ---
EXAMINATION TYPE: XR abdomen 2V DATE OF EXAM: 05/02/2017 COMPARISON: 04/10/2017 HISTORY: Bowel obstruction TECHNIQUE: Two view abdominal series FINDINGS: The osseous structures are intact. The bowel gas pattern is nonspecific. Severe scoliosis with multi ple air-fluid levels in dilated small bowel loops persist. NG tube is been removed. Findings suggest previous hernia surgery. Correlate clinically. IMPRESSION: 1. Nonspecific abdomen most typical of small bowel obstruction correlate clinically.
[2017-05-02 08:55] LABS: Basophils # (A) 0.1 k/uL (0-0.2); Basophils % (A) 1 %; CH 29.2; CHCM 31.2; Eosinophils # (A) 0.2 k/uL (0-0.7); Eosinophils % (A) 2 %; HCT 39.5 % (34.0-46.0); HGB 12.3 gm/dL (11.4-16.0); Luc # (Auto) 0.32; Luc % (Auto) 4; Lymphocytes # (A) 0.8 k/uL (1.0-4.8); Lymphocytes % (A) 11 %; MCH 29.4 pg (25.0-35.0); MCHC 31.2 g/dL (31.0-37.0); MCV 94.4 fL (80.0-100.0); Mean Platelet Volume 7.7; Monocytes # (A) 0.5 k/uL (0-1.0); Monocytes % (A) 7 %; Neutrophils # (A) 5.7 k/uL (1.3-7.7); Neutrophils % (A) 75 %; RBC 4.19 m/uL (3.80-5.40); RDW 14.1 % (11.5-15.5); WBC 7.5 k/uL (3.8-10.6); WBC (Perox) 7.97
[2017-05-02] MEDS: BISACODYL 10 MG SUPP RECTAL SCH (09:00)
[2017-05-02 09:48] LABS: ALT 39 U/L (9-52); AST 34 U/L (14-36); Alkaline Phosphatase 85 U/L (38-126); Anion Gap 9 mmol/L; Blood Urea Nitrogen <2 mg/dL (7-17); Calcium 8.4 mg/dL (8.4-10.2); Carbon Dioxide 24 mmol/L (22-30); Chloride 110 mmol/L (98-107); Glucose 97 mg/dL (74-99); Non-African American GFR(MDRD) >60 (>60 ml/min/1.73 sqM); Potassium 3.1 mmol/L (3.5-5.1); Sodium 143 mmol/L (137-145); Total Bilirubin 0.5 mg/dL (0.2-1.3); Total Protein 5.5 g/dL (6.3-8.2)
--- NOTE | 2017-05-02 10:29 | P.PN ---
Subjective Domenica Barbosa is a 31-year-old female well known to my practice who presented to [facility] emergency room with a chief complaint of abdominal pain. Patient presented to the emergency room via the EMS system after care providers noted the patient to be experiencing left lower quadrant pain. The onset occurred in the morning. Patient is nonverbal due to cognitive impairment does communicate by pointing. Patient has had multiple abdominal surgeries in the past Patient has had a repair of an incisional hernia with mesh patient in 2014 for an ileus and had a decompressive sigmoidoscopy. in the emergency room patient did undergo a CAT scan of the abdomen and pelvis with contrast that revealed severe ileus cannot exclude a developing mid to distal small bowel obstruction. In the emergency room the abdomen was distended firm. Patient was admitted to the services of the attending with a surgical consultation requested. Nursing this morning report had tried on 3 attempts to insert a nasogastric tube. NG tube placement showed that the NG tube appeared to be coiled at the level of the epigastrium. Markedly dilated loops correlate for obstruction. patient refused to have further attempts at placing an nasogastric tube care providers at the bedside patient was alert nonverbal he was seen and examined case was discussed with Dr. Antunez over the phone She underwent Decompressive colonoscopy 05/02/2017 patient sitting up at bedside chair. Nonverbal. No evidence of distress. No complaints of pain. Was agitated at earlier in the morning and received a dose of Ativan. However patient is arousable. Patient did have a bowel movement last night and this morning. NG tube still in place fluid and NG tube is a light pink. Possible trauma to the NG tube. Objective - Vital Signs Vital signs: Vital Signs Temp 96.4 F L 05/02/17 07:00 Pulse 78 05/02/17 07:18 Resp 16 05/02/17 07:18 BP 125/82 05/02/17 07:00 Pulse Ox 99 05/02/17 07:00 Intake & Output 05/01/17 05/02/17 05/02/17 18:59 06:59 18:59 Intake Total 1100 850 Balance 1100 850 Weight 45.359 kg Intake: IV 850 Piperacillin-Tazobactam 3 50 .375 gm In Dextrose/Water 1 50ml.bag @ 12.5 mls/hr IVPB Q8HR [facility] Rx#: [id number] Sodium Chloride 0.9% 1, 800 000 ml @ 100 mls/hr IV . Q10H [facility] Rx#:[id number] Intake, IV Titration 1100 Amount Dextrose 10 % in Water 250 250 ml @ 999 mls/hr IV ONCE [facility] Rx#:[id number] Piperacillin-Tazobactam 3 50 .375 gm In Dextrose/Water 1 50ml.bag @ 12.5 mls/hr IVPB Q8HR [facility] Rx#: [id number] Sodium Chloride 0.9% 1, 800 000 ml @ 100 mls/hr IV . Q10H [facility] Rx#:[id number] Other: Voiding Method Toilet Toilet Toilet # Voids 4 4 - Exam Head normocephalic Neck supple Lungs clear to auscultation bilaterally no wheezing or crackles Heart regular rate and rhythm S1-S2, no rub or gallop Abdomen is soft nontender nondistended positive bowel sounds no hepatosplenomegaly Extremities +1 edema bilateral lower extremities Neuro alert and orientated to 3 - Labs CBC & Chem 7: 05/02/17 08:36 05/02/17 08:36 Labs: Abnormal Lab Results - Last 24 Hours (Table) 05/02/17 05/02/17 Range/Units 08:36 08:36 Lymphocytes # 0.8 L (1.0-4.8) k/uL Potassium 3.1 L (3.5-5.1) mmol/L Chloride 110 H (98-107) mmol/L BUN <2 L (7-17) mg/dL Total Protein 5.5 L (6.3-8.2) g/dL Albumin 2.9 L (3.5-5.0) g/dL Assessment and Plan Plan: #1 Abdominal pain with significant abdominal wall distention suspect due to developing mid to distal small bowel obstruction. Status post decompressive colonoscopy. NG tube in place. We'll await further surgical recommendations regarding possible NG tube removal. Patient is now having bowel movements. 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 #4 History of a repair of an abdominal hernia with mesh #5 hypokalemia we'll give replacement. Check magnesium level. DVT prophylaxis subcu heparin and GI prophylaxis Protonix I performed an examination of the patient and discussed their management with the physician Prefinish Operator. I have reviewed the Physician Prefinish Operator's notes and agree with the documented findings and plan of care
[2017-05-02] MEDS: HYDROmorphone 1 MG/ML 1 ML SYRINGE IV PRN (11:43)
[2017-05-02] MEDS: MULTIVITAMINS, THERA 1 EACH TAB PO SCH (11:58)
[2017-05-02] MEDS: POTASSIUM CHLORIDE 20 MEQ, LIDOCAINE 2% INJ 20 MG in SODIUM CHLORIDE 0.9% 100 ML IVPB SCH ×2 (12:01→16:17)
--- NOTE | 2017-05-02 13:19 | P.PN ---
Subjective 31-year-old female sitting up in a chair with a nasal gastric tube in place. Patient has periods of agitation requiring Ativan. Did note in the canister there is about 200 of ramon-colored secretions. Suspect due to the trauma of the nasogastric tube being in place nursing reports patient did have a bowel movement last night and this morning Objective - Vital Signs Vital signs: Vital Signs Temp 96.4 F L 05/02/17 07:00 Pulse 78 05/02/17 07:18 Resp 16 05/02/17 07:18 BP 125/82 05/02/17 07:00 Pulse Ox 99 05/02/17 07:00 Intake & Output 05/01/17 05/02/17 05/02/17 18:59 06:59 18:59 Intake Total 1100 850 Balance 1100 850 Weight 45.359 kg Intake: IV 850 Piperacillin-Tazobactam 3 50 .375 gm In Dextrose/Water 1 50ml.bag @ 12.5 mls/hr IVPB Q8HR [facility] Rx#: [id number] Sodium Chloride 0.9% 1, 800 000 ml @ 100 mls/hr IV . Q10H [facility] Rx#:[id number] Intake, IV Titration 1100 Amount Dextrose 10 % in Water 250 250 ml @ 999 mls/hr IV ONCE [facility] Rx#:[id number] Piperacillin-Tazobactam 3 50 .375 gm In Dextrose/Water 1 50ml.bag @ 12.5 mls/hr IVPB Q8HR [facility] Rx#: [id number] Sodium Chloride 0.9% 1, 800 000 ml @ 100 mls/hr IV . Q10H [facility] Rx#:[id number] Other: Voiding Method Toilet Toilet Toilet # Voids 4 4 - Exam Physical exam 31-year-old female sitting up in a chair sedated had just received Ativan Lungs essentially clear with adequate air movement bilaterally Heart S1-S2 audible and regular Abdomen firm distended diffuse tenderness no stool no reports of nausea no vomiting less distention noted bowel movement this morning and last night nasal gastric tube in place connected to suction pink secretions noted Extremities no edema - Labs CBC & Chem 7: 05/02/17 08:36 05/02/17 08:36 Labs: Abnormal Lab Results - Last 24 Hours (Table) 05/02/17 05/02/17 Range/Units 08:36 08:36 Lymphocytes # 0.8 L (1.0-4.8) k/uL Potassium 3.1 L (3.5-5.1) mmol/L Chloride 110 H (98-107) mmol/L BUN <2 L (7-17) mg/dL Total Protein 5.5 L (6.3-8.2) g/dL Albumin 2.9 L (3.5-5.0) g/dL Assessment and Plan Plan: Impression Present on admission left lower quadrant pain with significant severe abdominal wall distention suspect due to developing mid to distal small bowel obstruction History of caleb syndrome Functional quadriplegic with Chronic debility moderate to severe limited mobility not able to participate in ADLs suspect due to caleb syndrome History of a repair of an abdominal hernia with mesh Severe scoliosis unable to perform acute ADLs Status post decompressive colonoscopy done on April 27 Cognitive impairment 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 Peace Esquivel nurse practitioner acting as scribe for signing physician.
[2017-05-02 14:00] LABS: Glucose,Whole Blood 94 mg/dL (75-99)
[2017-05-02] MEDS ORDERED: MAGNESIUM SULFATE-D5W PMX 1 GM in DEXTROSE/WATER 1 100ML.BAG IVPB ONE (16:00)
[2017-05-02 17:58] LABS: Glucose,Whole Blood 83 mg/dL (75-99)
[2017-05-02] MEDS: MELATONIN 3 MG TABLET PO SCH (20:22)
[2017-05-03 02:01] LABS: Glucose,Whole Blood 128 mg/dL (75-99)
[2017-05-03] MEDS: PIPERACILLIN-TAZOBACTAM 3.375 GM in DEXTROSE/WATER 1 50ML.BAG IVPB SCH ×3 (02:03→16:49)
[2017-05-03] MEDS: LORazepam 2 MG/ML SYRINGE IV PRN (02:39)
[2017-05-03] MEDS: DEXTROSE 5%-0.45% NACL 1,000 ML IV SCH ×2 (02:59→08:32)
[2017-05-03 06:18] LABS: Glucose,Whole Blood 127 mg/dL (75-99)
[2017-05-03 07:13] LABS: Glucose,Whole Blood 126 mg/dL (75-99)
[2017-05-03 08:04] VITALS: BP 110/73; PULSE 94; RESP 18; TEMP 98.2
[2017-05-03] MEDS: POTASSIUM CHLORIDE 10 MEQ, LIDOCAINE 2% INJ 10 MG in SODIUM CHLORIDE 0.9% 100 ML IVPB SCH ×2 (08:37→09:55)
[2017-05-03] MEDS: HEPARIN SODIUM,PORCINE 5,000 UNIT/ML 1 ML VIAL SQ SCH ×2 (08:37→16:48)
[2017-05-03] MEDS: PANTOPRAZOLE 40 MG TABLET PO SCH (08:37)
[2017-05-03] MEDS: MULTIVITAMINS, THERA 1 EACH TAB PO SCH (08:37)
[2017-05-03 09:40] LABS: Basophils # (A) 0.1 k/uL (0-0.2); Basophils % (A) 1 %; CH 29.9; Eosinophils # (A) 0.2 k/uL (0-0.7); Eosinophils % (A) 2 %; HCT 38.2 % (34.0-46.0); HDW 2.48; HGB 11.6 gm/dL (11.4-16.0); Luc # (Auto) 0.23; Luc % (Auto) 4; Lymphocytes % (A) 16 %; MCH 28.6 pg (25.0-35.0); MCHC 30.4 g/dL (31.0-37.0); Monocytes # (A) 0.3 k/uL (0-1.0); Monocytes % (A) 5 %; Neutrophils # (A) 4.6 k/uL (1.3-7.7); Neutrophils % (A) 72 %; RBC 4.07 m/uL (3.80-5.40); RDW 15.1 % (11.5-15.5); WBC 6.4 k/uL (3.8-10.6); WBC (Perox) 6.72
[2017-05-03 10:18] LABS: ALT 39 U/L (9-52); AST 29 U/L (14-36); Alkaline Phosphatase 73 U/L (38-126); Anion Gap 11 mmol/L; Blood Urea Nitrogen 4 mg/dL (7-17); Calcium 8.4 mg/dL (8.4-10.2); Carbon Dioxide 23 mmol/L (22-30); Chloride 111 mmol/L (98-107); Glucose 142 mg/dL (74-99); Magnesium 1.9 mg/dL (1.6-2.3); Non-African American GFR(MDRD) >60 (>60 ml/min/1.73 sqM); Potassium 3.6 mmol/L (3.5-5.1); Sodium 145 mmol/L (137-145); Total Bilirubin 0.3 mg/dL (0.2-1.3); Total Protein 5.6 g/dL (6.3-8.2)
--- NOTE | 2017-05-03 10:27 | P.PN ---
Subjective Domenica Barbosa is a 31-year-old female well known to my practice who presented to [facility] emergency room with a chief complaint of abdominal pain. Patient presented to the emergency room via the EMS system after care providers noted the patient to be experiencing left lower quadrant pain. The onset occurred in the morning. Patient is nonverbal due to cognitive impairment does communicate by pointing. Patient has had multiple abdominal surgeries in the past Patient has had a repair of an incisional hernia with mesh patient in 2014 for an ileus and had a decompressive sigmoidoscopy. in the emergency room patient did undergo a CAT scan of the abdomen and pelvis with contrast that revealed severe ileus cannot exclude a developing mid to distal small bowel obstruction. In the emergency room the abdomen was distended firm. Patient was admitted to the services of the attending with a surgical consultation requested. Nursing this morning report had tried on 3 attempts to insert a nasogastric tube. NG tube placement showed that the NG tube appeared to be coiled at the level of the epigastrium. Markedly dilated loops correlate for obstruction. patient refused to have further attempts at placing an nasogastric tube care providers at the bedside patient was alert nonverbal he was seen and examined case was discussed with Dr. Antunez over the phone She underwent Decompressive colonoscopy 05/02/2017 patient sitting up at bedside chair. Nonverbal. No evidence of distress. No complaints of pain. Was agitated at earlier in the morning and received a dose of Ativan. However patient is arousable. Patient did have a bowel movement last night and this morning. NG tube still in place fluid and NG tube is a light pink. Possible trauma to the NG tube. 05/03/2017 NG tube removed yesterday. Patient initially started on a clear diet and advanced to soft. Patient is eating multiple sandwiches through the night. Has eaten her whole back breakfast tray which had included pancakes. Nursing staff notifying me that patient is usually on a. Diet at home.. Diet will be started. Patient's abdomen is slightly more distended today. However it is soft and patient is not having any pain. No nausea or vomiting. Patient appears comfortable sitting at bedside chair. Case discussed with surgical nurse practitioner. She will be through to evaluate patient later today Objective - Vital Signs Vital signs: Vital Signs Temp 98.2 F 05/03/17 07:00 Pulse 94 05/03/17 07:00 Resp 18 05/03/17 07:00 BP 110/73 05/03/17 07:00 Pulse Ox 96 05/03/17 07:00 Intake & Output 05/02/17 05/03/17 05/03/17 18:59 06:59 18:59 Intake Total 100 1050 240 Balance 100 1050 240 Weight 45.359 kg Intake: IV 50 Piperacillin-Tazobactam 3 50 .375 gm In Dextrose/Water 1 50ml.bag @ 12.5 mls/hr IVPB Q8HR [facility] Rx#: [id number] Intake, IV Titration 100 1000 Amount Dextrose 5%-0.45% NaCl 1, 800 000 ml @ 100 mls/hr IV . Q10H [facility] Rx#:[id number] Potassium Chloride 20 meq 100 200 Lidocaine 2% Inj 20 mg In Sodium Chloride 0.9% 100 ml @ 55.5 mls/hr IVPB Q2H [facility] Rx#:[id number] Oral 240 Other: Voiding Method Toilet Toilet # Voids 1 - Exam Head normocephalic Neck supple Lungs clear to auscultation bilaterally no wheezing or crackles Heart regular rate and rhythm S1-S2, no rub or gallop Abdomen is soft nontender positive bowel sounds distended but soft nontender Extremities mild edema bilaterally nonpitting Neuro patient is awake and alert. Nonverbal. - Labs CBC & Chem 7: 05/03/17 09:16 05/03/17 09:16 Labs: Abnormal Lab Results - Last 24 Hours (Table) 05/02/17 05/03/17 05/03/17 Range/Units 19:35 01:59 05:59 MCHC (31.0-37.0) g/dL Potassium 3.3 L (3.5-5.1) mmol/L Chloride (98-107) mmol/L BUN (7-17) mg/dL Glucose (74-99) mg/dL POC Glucose (mg/dL) 128 H 127 H (75-99) mg/dL Total Protein (6.3-8.2) g/dL Albumin (3.5-5.0) g/dL 05/03/17 05/03/17 05/03/17 Range/Units 07:11 09:16 09:16 MCHC 30.4 L (31.0-37.0) g/dL Potassium (3.5-5.1) mmol/L Chloride 111 H (98-107) mmol/L BUN 4 L (7-17) mg/dL Glucose 142 H (74-99) mg/dL POC Glucose (mg/dL) 126 H (75-99) mg/dL Total Protein 5.6 L (6.3-8.2) g/dL Albumin 3.1 L (3.5-5.0) g/dL Assessment and Plan Plan: #1 Abdominal pain with significant abdominal wall distention suspect due to developing mid to distal small bowel obstruction. Status post decompressive colonoscopy. Patient having bowel movements. NG tube removed yesterday. Abdomen appears more distended today. She will be evaluated by surgical service. 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 Now resolved since diet has been initiated. #4 History of a repair of an abdominal hernia with mesh #5 hypokalemia : Has been corrected with supplement #6 hypomagnesium replaced #7 change diet to pured diet, which patient is on at home and Hep-Lock IV fluids. DVT prophylaxis subcu heparin and GI prophylaxis Protonix I performed an examination of the patient and discussed their management with the physician Poultice Machine Operator. I have reviewed the Physician Poultice Machine Operator's notes and agree with the documented findings and plan of care
[2017-05-03] MEDS: BISACODYL 10 MG SUPP RECTAL SCH (10:44)
[2017-05-03 11:12] LABS: Glucose,Whole Blood 138 mg/dL (75-99)
--- NOTE | 2017-05-03 12:49 | P.PN ---
Progress Note - Text The patient is resting comfortably in her bed. She's had several bowel movements last night. She appears to be in no distress. On exam her vital signs are stable. Her abdomen soft. The patient will be discharged home today. She'll follow-up as needed.
--- NOTE | 2017-05-03 13:38 | P.DS ---
Providers Date of admission: 04/25/17 16:58 Expected date of discharge: 05/03/17 Attending physician: Uday Connolly Consults: 04/25/17 16:55 Consult Physician Urgent Consulting Provider: Kyler Antunez Consult Reason/Comments: abd pain/distention Do you want consulting provider notified?: Yes Primary care physician: Uday Connolly [facility] Course: Discharge diagnosis #1 Abdominal pain with significant abdominal wall distention suspect due to developing mid to distal small bowel obstruction. Status post decompressive colonoscopy. Patient having bowel movements. NG tube removed yesterday. Patient seen by surgeon. He has cleared patient for discharge. She is having bowel movements. No vomiting. No abdominal pain. 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 Now resolved since diet has been initiated. #4 History of a repair of an abdominal hernia with mesh #5 hypokalemia : Has been corrected with supplement #6 hypomagnesium replaced #7 change diet to pured diet, which patient is on at home and Hep-Lock IV fluids. #8 moderate protein calorie malnutrition, underweight. BMI 17.2 #9 functional quadriplegic Hospital course Domenica Barbosa is a 31-year-old female well known to my practice who presented to [facility] emergency room with a chief complaint of abdominal pain. Patient presented to the emergency room via the EMS system after care providers noted the patient to be experiencing left lower quadrant pain. The onset occurred in the morning. Patient is nonverbal due to cognitive impairment does communicate by pointing. Patient has had multiple abdominal surgeries in the past Patient has had a repair of an incisional hernia with mesh patient in 2014 for an ileus and had a decompressive sigmoidoscopy. in the emergency room patient did undergo a CAT scan of the abdomen and pelvis with contrast that revealed severe ileus cannot exclude a developing mid to distal small bowel obstruction. In the emergency room the abdomen was distended firm. Patient was admitted to the services of the attending with a surgical consultation requested. Nursing this morning report had tried on 3 attempts to insert a nasogastric tube. NG tube placement showed that the NG tube appeared to be coiled at the level of the epigastrium. Markedly dilated loops correlate for obstruction. Patient was able to finally have NG tube placed. She did undergo a decompressive colonoscopy with Dr. Antunez. Patient started having bowel movements and NG tube was able to be removed. She was initially started on a clear diet that was advanced to soft. Patient ate between 4 and 6 sandwiches yesterday as well as soft breakfast this morning. Denies any abdominal pain. She did have a bowel movement. There is no evidence of any vomiting or nausea. Surgical service did reevaluate patient and felt that she was stable for discharge. We will we'll continue patient on stool softener and MiraLAX bowel regimen to alleviate constipation and help prevent bowel obstruction. Patient has been cleared by surgical service and she is medically stable for discharge. She'll be discharged home. I performed an examination of the patient and discussed their management with the physician [employer] Be[employer] Machine Operator. I have reviewed the Physician Broke Beater Machine Operator's notes and agree with the documented findings and plan of care Patient Condition at Discharge: Stable Plan - Discharge Summary New Discharge Prescriptions: New Docusate [Colace] 100 mg PO BID #60 capsule Polyethylene Glycol 3350 [Miralax] 17 gm PO DAILY #30 packet Continue Multivitamin with Iron [Daily Multivitamin with Iron] 1 tab PO DAILY Omeprazole [PriLOSEC] 20 mg PO AC-BRKFST Melatonin 3 mg PO HS Discharge Medication List Multivitamin with Iron [Daily Multivitamin with Iron] 1 tab PO DAILY 12/11/14 [ History] Omeprazole [PriLOSEC] 20 mg PO AC-BRKFST 12/23/14 [History] Melatonin 3 mg PO HS 04/25/17 [History] Docusate [Colace] 100 mg PO BID #60 capsule 05/03/17 [Rx] Polyethylene Glycol 3350 [Miralax] 17 gm PO DAILY #30 packet 05/03/17 [Rx] Follow up Appointment(s)/Referral(s): Kyler Antunez MD [STAFF PHYSICIAN] - As Needed Uday Connolly MD [Primary Care Provider] - 1 Week Patient Instructions/Handouts: Abdominal Pain (ED), Bowel Obstruction (ED) Activity/Diet/Wound Care/Special Instructions: Diet: pureed Activity: as tolerated Discharge Disposition: HOME SELF-CARE
== END 2017-05-03 17:20 | disposition home or self-care (01) | DRG 388 ==
LOC: EEVIPCON 14:08 → EC 14:08 → 5MS5E 16:58
PROVIDERS: ADMIT Internal Medicine; ATTEND Internal Medicine
PROC: 0D9670Z Drainage of Stomach with Drainage Device, Via Natural or Artificial Opening (ICD-10-PCS; principal; 2017-04-25)
PROC: 0DJD8ZZ Inspection of Lower Intestinal Tract, Via Natural or Artificial Opening Endoscopic (ICD-10-PCS; 2017-04-27)
DX: K56.60 Unspecified intestinal obstruction (principal); R53.2 Functional quadriplegia; F84.2 Rett's syndrome; E44.0 Moderate protein-calorie malnutrition; E83.42 Hypomagnesemia; M41.9 Scoliosis, unspecified; Z78.1 Physical restraint status; Z68.1 Body mass index [BMI] 19.9 or less, adult; E87.6 Hypokalemia; K21.9 Gastro-esophageal reflux disease without esophagitis; R48.2 Apraxia; E16.2 Hypoglycemia, unspecified; Z79.899 Other long term (current) drug therapy; Z90.710 Acquired absence of both cervix and uterus; Z90.3 Acquired absence of stomach [part of]
CPT/HCPCS: 36415; 45393; 71010; 74000; 74020; 74177; 80048; 80053; 81001; 82150; 83605; 83690; 83735; 84132; 85025; 85610; 85730; 96361; 96374; 96375; 99285